=== PATIENT | female | born 1945 | race Caucasian/White ===

== ENCOUNTER 2022-09-04 21:05 | Emergency (ER) | payer MEDICARE, BC ==
--- NOTE | 2022-09-04 22:06 | XR ---
EXAMINATION TYPE: XR ankle complete LT DATE OF EXAM: 09/04/2022 COMPARISON: NONE HISTORY: Swelling and pain TECHNIQUE: 2 view FINDINGS: Ankle mortise is anatomic. I see no fracture nor dislocation. There is plantar and Achilles calcaneal spurring. There are no erosions. IMPRESSION: Calcaneal spurring. No fracture seen.
[2022-09-04 22:08] VITALS: RESP 16
--- NOTE | 2022-09-04 22:08 | XR ---
EXAMINATION TYPE: XR tibia fibula LT DATE OF EXAM: 09/04/2022 COMPARISON: NONE HISTORY: Pain and swelling TECHNIQUE: 2 views FINDINGS: Tibia and fibula appear intact. No fracture nor dislocation. Knee joint and ankle joint tabitha ear intact. IMPRESSION: Negative left tibia and fibula exam.
[2022-09-04] MEDS ORDERED: predniSONE 20 MG TAB PO STA (22:39)
[2022-09-04] MEDS ORDERED: ACETAMINOPHEN TAB 500 MG TAB PO STA (22:39)
--- NOTE | 2022-09-04 22:50 | ED ---
Extremity Problem HPI - General Chief complaint: Extremity Problem,Nontraumatic Stated complaint: L foot swelling Time Seen by Provider: 09/04/22 21:27 Source: patient, RN notes reviewed Mode of arrival: wheelchair Limitations: no limitations - History of Present Illness Initial comments: This is a pleasant 77-year-old female comes in complaining of left ankle pain and swelling. Patient states that she was just doing some work today and stood up and felt pain in her ankle. Mainly lateral aspect. Patient states that she is able put some weight on it but it increases the pain. No proximal pain. No distal. Seizures. No definitive injury. No headache, no fever or chills, no changes in vision or hearing, no sore throat or difficulty with speech, no neck pain, no chest pain or shortness of breath, no abdominal pain, no nausea or vomiting, no changes in urination or bowel movements, no numbness or tingling, , no skin rashes or lesions. No history of liver dysfunction or kidney dysfunction. No direct trauma. No history of diabetes or gout. Positive family history of gout and her son Past medical, surgical, social, and family history reviewed. - Related Data Previous Rx's Medication Instructions Recorded predniSONE [Deltasone] 40 mg PO DAILY #6 tab 09/04/22 Allergies Allergy/AdvReac Type Severity Reaction Status Date / Time No Known Allergies Allergy Verified 09/04/22 21:26 Review of Systems ROS Statement: Those systems with pertinent positive or pertinent negative responses have been documented in the HPI. ROS Other: All systems not noted in ROS Statement are negative. Past Medical History Past Medical History: Hypertension Past Surgical History: Tubal Ligation General Exam Limitations: no limitations General appearance: alert, in no apparent distress Head exam: Present: atraumatic, normocephalic, normal inspection Eye exam: Present: normal appearance, EOMI ENT exam: Present: normal exam Neck exam: Present: normal inspection, full ROM Respiratory exam: Present: normal lung sounds bilaterally. Absent: respiratory distress, wheezes, rales, rhonchi, stridor Cardiovascular Exam: Present: regular rate, normal rhythm, normal heart sounds. Absent: systolic murmur, diastolic murmur, rubs, gallop, clicks GI/Abdominal exam: Present: soft. Absent: tenderness Left Knee exam: Present: normal inspection, full ROM. Absent: tenderness, swelling, abrasion, laceration Lower Leg exam: Present: normal inspection. Absent: tenderness, swelling, abrasion, laceration, ecchymosis, deformity, crepitus, dislocation Ankle exam: Present: full ROM, tenderness (Patient has tenderness over both the anterior talofibular ligament and the calcaneal talofibular ligament. No medial tenderness), swelling. Absent: normal inspection, abrasion, laceration, ecchymosis, deformity, crepitus, dislocation, erythema, anterior draw sign Foot/Toe exam: Present: normal inspection, full ROM. Absent: tenderness, swelling, abrasion, laceration, ecchymosis, deformity, crepitus, dislocation, erythema Neurovascular tendon exam: Present: no vascular compromise. Absent: pulse deficit, abnormal cap refill, motor deficit, sensory deficit, pallor Gait: antalgic Back exam: Present: normal inspection Neurological exam: Present: alert, oriented X3, CN II-XII intact. Absent: motor sensory deficit Psychiatric exam: Present: normal affect, normal mood Skin exam: Present: warm, dry, intact, normal color. Absent: rash, cyanosis, di aphoretic, erythema Course Vital Signs 09/04/22 09/04/22 21:20 22:05 Temperature 98 F 97.9 F Pulse Rate 77 74 Respiratory 20 16 Rate Blood Pressure 155/88 144/87 O2 Sat by Pulse 96 97 Oximetry Medical Decision Making - Medical Decision Making Was pt. sent in by a medical professional or institution? @ -no Did you speak to anyone other than the patient for history? @ -Son Did you review nursing and triage notes? @ -Reviewed, agree Were old charts reviewed? @ -no Differential Diagnosis? @ -Gout, ankle sprain, DVT, infection, ankle fracture, this is not an exhaustive list EKG interpreted by me (3pts min.)? @ -[none] X-rays interpreted by me (1pt min.)? @ -Plain films of the left ankle and left tib-fib read by me show evidence of arthritic changes but no acute process. Reviewed radiology interpretation CT interpreted by me (1pt min.)? @ -[none] U/S interpreted by me (1pt. min.)? @ -[none] What testing was considered but not performed? (CT, X-rays, U/S, labs)? Why? @Testing for baseline gout was also considered and actually ordered after a long discussion with the patient and her son. What meds were considered but not given? Why? @ -Considered anti-inflammatory medication such as ibuprofen or indomethacin. After discussion decided to treat with corticosteroids and immobilization. Ankle splint, neurovascular status intact. Did you discuss the management of the patient with other professionals? @ -Pending physician Did you reconcile home meds? @ -[none] Was smoking cessation discussed for >3mins.? @ -[none] Was critical care preformed (if so, how long)? @ -[none] Were there social determinants of health that impacted care today? How? (Homelessness, low income, unemployed, alcoholism, drug addiction, transportation, low edu. Level, literacy, decrease access to med. care, long term, rehab)? @ -no Was there de-escalation of care discussed even if they declined? (Discuss DNR or withdrawal of care, Hospice)? @ -no What co-morbidities impacted this encounter? (DM, HTN, Smoking, COPD, CAD, Cancer, CVA, Hep., AIDS, mental health diagnosis, sleep apnea, morbid obesity)? @ -Family history of gout Was patient admitted / discharged? @ -[Patient was not ill or toxic. Patient's symptomatology most consistent with ankle sprain. I suspect the patient may have injured it and then after the edema came on started getting pain. Pain only to the lateral aspect of the ankle over the ligamentous structures. There was no erythema or evidence of infectious process. I think this is a very remote possibly of gout. However a fter long discussion with the patient and her son I did order a CBC, BMP, sedimentation rate, CRP, and uric acid level. These were pending when the patient left. Patient was treated conservatively arise with an ankle splint. Her status intact. Patient concurs with this treatment plan. We will call her doctor for follow-up appointment tomorrow without fail. Patient has a negative Homans sign, does not appear to be consistent with DVT, no tenderness or swelling proximal to the ankle Patient was given 4 days of prednisone 40 mg daily. Given the first dose here.] Undiagnosed new problem with uncertain prognosis? @ -[none] Drug Therapy requiring intensive monitoring for toxicity (Heparin, Nitro, Insulin, Cardizem)? @ -[none] Were any procedures done? @ -[none] Diagnosis/symptom? @ -Left ankle pain Acute, or Chronic, or Acute on Chronic? @ -Acute Uncomplicated (without systemic symptoms) or Complicated (systemic symptoms)? @ -Uncomplicated Side effects of treatment? @ -[none] Exacerbation, Progression, or Severe Exacerbation] @ -[no] Poses a threat to life or bodily function? @ -Unlikely The case was discussed in detail with ED attending physician. Presentation, findings, treatment plan discussed in detail. Patient was told to return to the ER for any signs or symptoms worsen. Told to return immediately if any other problems arise. All questions answered. Treatment plan discussed. Patient in agreement Every effort has been made to ensure accuracy of this dictation. However, due to the limitations of electronic medical records and dictation devices, errors in charting still occur. Resident Dr. Gutierrez Disposition Clinical Impression: Left ankle sprain, Left ankle pain Narrative: Left ankle pain, likely a sprain, remote possibility of gout. Disposition: HOME SELF-CARE Condition: Good Additional Instructions: Wear the Velcro ankle splint as directed. Call in the morning to set up a follow-up appointment with your doctor. You doctor can go over the laboratory work that was ordered. Elevate your ankle as much as possible. Take the prednisone as directed for the next 3 days. Apply ice 20 minutes on and off to the affected area. I believe this is likely a ligament sprain. However there is a remote possibility of gout. He laboratory investigations to include a CBC, BMP, sedimentation rate, C-reactive protein, and uric acid have been sent and are pending. Follow-up with your regular physician as directed. Return to the ER immediately if any symptoms worsen, new symptoms arise, or any other problems develop. Is patient prescribed a controlled substance at d/c from ED?: No Referrals: Santos Daly DO [Primary Care Provider] - 1-2 days Time of Disposition: 22:43
[2022-09-04 23:16] VITALS: BP 138/73; PULSE 78; TEMP 98.4
[2022-09-04 23:16] LABS: Basophils # (A) 0.1 k/uL (0-0.2); Basophils % (A) 0 %; Eosinophils # (A) 0.2 k/uL (0-0.7); Eosinophils % (A) 2 %; HCT 37.3 % (34.0-46.0); HGB 12.8 gm/dL (11.4-16.0); Lymphocytes # (A) 2.2 k/uL (1.0-4.8); Lymphocytes % (A) 18 %; MCHC 34.4 g/dL (31.0-37.0); MCV 84.3 fL (80.0-100.0); Mean Platelet Volume 8.7; Monocytes # (A) 0.8 k/uL (0-1.0); Monocytes % (A) 7 %; Neutrophils # (A) 8.9 k/uL (1.3-7.7); Neutrophils % (A) 73 %; Platelet Count 203 k/uL (150-450); RBC 4.42 m/uL (3.80-5.40); RDW 13.2 % (11.5-15.5); WBC 12.2 k/uL (3.8-10.6)
[2022-09-04 23:27] LABS: African American GFR (CKD) >90 (>60 ml/min/1.73 sqM); Anion Gap 8 mmol/L; Blood Urea Nitrogen 24 mg/dL (7-17); C Reactive Protein 1.4 mg/dL (<1.0); Calcium 9.2 mg/dL (8.4-10.2); Carbon Dioxide 26 mmol/L (22-30); Chloride 104 mmol/L (98-107); Glucose 133 mg/dL (74-99); Non-African American GFR(CKD) 83 (>60 ml/min/1.73 sqM); Potassium 3.2 mmol/L (3.5-5.1); Sodium 138 mmol/L (137-145); Uric Acid 5.3 mg/dL (3.7-7.4)
[2022-09-05 01:03] LABS: Erythrocyte Sedimentation Rate 26 mm/hr (0-20)
== END 2022-09-04 23:15 | disposition home or self-care (01) ==
LOC: EC 21:05
DX: S93.402A Sprain of unspecified ligament of left ankle, initial encounter (principal); I10 Essential (primary) hypertension; X58.XXXA Exposure to other specified factors, initial encounter
CPT/HCPCS: 99284 ×2; 36415; 80048; 85652; 84550; 85025; 86140; 73590; 73610; 29125; L4350; J7512

== ENCOUNTER 2023-06-19 09:25 | Emergency (ER) | payer MEDICARE, BC ==
[2023-06-19 09:30] VITALS: BP 195/87; PULSE 87; RESP 20; TEMP 98
--- NOTE | 2023-06-19 10:08 | ED ---
General Adult HPI - General Chief complaint: Extremity Problem,Nontraumatic Stated complaint: Lt leg pain Time Seen by Provider: 06/19/23 09:37 Source: patient Mode of arrival: ambulatory Limitations: no limitations - History of Present Illness Initial comments: Dictation was produced using [employer] dictation software. please excuse any grammatical, word or spelling errors. Chief Complaint: 78-year-old female presents with chronic sciatica History of Present Illness: And is a 78-year-old female presents emergency department for chronic sciatica. Patient has been having worsening symptoms. She has been following with her primary care doctor regarding this. 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 Since that her pain is worse when going down the stairs is better whenever she bends at the waist slightly 4. Denies any fever chills or night sweats. No bowel or bladder issues. She states that she does have radiating symptoms from her left gluteus down to her foot laterally. Skin to the ER, she thought she might need an urgent MRI. The ROS documented in this emergency department record has been reviewed and confirmed by me. Those systems with pertinent positive or negative responses have been documented in the HPI. All other systems are other negative and/or noncontributory. - Related Data Previous Rx's Medication Instructions Recorded predniSONE [Deltasone] 40 mg PO DAILY #6 tab 09/04/22 HYDROcodone/APAP 5-325MG [Amana 1 tab PO Q6HR PRN 3 Days #12 tab 06/19/23 5-325] Allergies Allergy/AdvReac Type Severity Reaction Status Date / Time No Known Allergies Allergy Verified 06/19/23 09:30 Review of Systems ROS Statement: Those systems with pertinent positive or pertinent negative responses have been documented in the HPI. ROS Other: All systems not noted in ROS Statement are negative. Past Medical History Past Medical History: Hypertension History of Any Multi-Drug Resistant Organisms: None Reported Past Surgical History: Tubal Ligation Past Psychological History: No Psychological Hx Reported Smoking Status: Never smoker Past Alcohol Use History: None Reported Past Drug Use History: None Reported General Exam - General Exam Comments Initial Comments: PHYSICAL EXAM: General Impression: Alert and oriented x3, not in acute distress HEENT: Normocephalic atraumatic, extra-ocular movements intact, pupils equal and reactive to light bilaterally, mucous membranes moist. Cardiovascular: Heart regular rate and rhythm Chest: Able to complete full sentences, no retractions, no tachypnea Abdomen: abdomen soft, non-tender, non-distended, no organomegaly Musculoskeletal: Pulses present and equal in all extremities, no peripheral edema Motor: no focal deficits noted Neurological: CN II-XII grossly intact, no focal motor or sensory deficits noted Skin: Intact with no visualized rashes Psych: Normal affect and mood Limitations: no limitations Course Vital Signs 06/19/23 09:27 Temperature 98 F Pulse Rate 87 Respiratory 20 Rate Blood Pressure 195/87 O2 Sat by Pulse 96 Oximetry Medical Decision Making - Medical Decision Making Was pt. sent in by a medical professional or institution (, PA, MID LEVEL GAME DESIGNER, urgent care, hospital, or snf...) When possible be specific @ -No Did you speak to anyone other than the patient for history (EMS, parent, family, police, friend...)? What history was obtained from this source @ -No Did you review nursing and triage notes (agree or disagree)? Why? @ -I reviewed and agree with nursing and triage notes Were old charts reviewed (outside hosp., previous admission, EMS record, old EKG, old radiological studies, urgent care reports/EKG's, snf records)? Report findings @ -No old charts were reviewed Differential Diagnosis (chest pain, altered mental status, abdominal pain women, abdominal pain men, vaginal bleeding, musculoskeletal, weakness, fever, dyspnea, syncope, headache, dizziness, GI bleed, back pain, seizure, CVA, palpatations, mental health)? @ -Differential Back Pain: Strain, zoster, cauda equina syndrome, epidural abscess, vertebral osteomyelitis, discitis, fracture, subluxation, disc herniation, DJD, spinal stenosis, dissection, AAA, pancreatitis, peptic ulcer disease, pyelonephritis, kidney stone, this is not meant to be an all-inclusive list. EKG interpreted by me (3pts min.). @ -None done X-rays interpreted by me (1pt min.). @ -None done CT interpreted by me (1pt min.). @ -None done U/S interpreted by me (1pt. min.). @ -None done What testing was considered but not performed or refused? (CT, X-rays, U/S, labs)? Why? @ -None What meds were considered but not given or refused? Why? @ -None Did you discuss the management of the patient with other professionals (professionals i.e. , PA, MID LEVEL GAME DESIGNER, lab, RT, psych nurse, criminal justice social worker, food and beverage order clerk, teacher, systems support officer, transplant case manager)? Give summary @ -No Was smoking cessation discussed for >3mins.? @ -No Was critical care preformed (if so, how long)? @ -No Were there social determinants of health that impacted care today? How? (Homelessness, low income, unemployed, alcoholism, drug addiction, transportation, low edu. Level, literacy, decrease access to med. care, skilled nursing, rehab)? @ -No Was there de-escalation of care discussed even if they declined (Discuss DNR or withdrawal of care, Hospice)? DNR status @ -No What co-morbidities impacted this encounter? (DM, HTN, Smoking, COPD, CAD, Cancer, CVA, ARF, Chemo, Hep., AIDS, mental health diagnosis, sleep apnea, morbid obesity)? @ -None Was patient admitted / discharged? Hospital course, mention meds given and route, prescriptions, significant lab abnormalities, going to OR and other pertinent info. @ -78-year-old female presents to the emergency department for chronic back pain. Vital signs stable. Patient denies any acute symptoms. No high-risk features. Patient not sure she should come to the ER for an MRI. She is told that she does not need an urgent MRI and that she should follow-up with her primary care doctor for outpatient MRI. Given referral to the to local spine surgeons in town. Will plan. All questions answered. Undiagnosed new problem with uncertain prognosis? @ -No Drug Therapy requiring intensive monitoring for toxicity (Heparin, Nitro, Insulin, Cardizem)? @ -No Were any procedures done? @ -No Diagnosis/symptom? Acute, or Chronic, or Acute on Chronic? Uncomplicated (without systemic symptoms) or Complicated (systemic symptoms)? @ -Back pain Side effects of treatment? @ -No Exacerbation, Progression, or Severe Exacerbation? @ -No Poses a threat to life or bodily function? How? (Chest pain, [place], [place], pneumonia, PE, COPD, DKA, ARF, appy, cholecystitis, CVA, Diverticulitis, Homicidal, Suicidal, threat to staff... and all critical care pts) @ -No Disposition Clinical Impression: Back pain Disposition: HOME SELF-CARE Condition: Good Instructions (If sedation given, give patient instructions): Sciatica (ED) Prescriptions: HYDROcodone/APAP 5-325MG [Amana 5-325] 1 tab PO Q6HR PRN 3 Days #12 tab PRN Reason: Severe Pain Is patient prescribed a controlled substance at d/c from ED?: Yes If prescribed controlled substance>3 days was MAPS reviewed?: Prescribed <3 Days Referrals: Julio Eisenberg DO [Doctor of Osteopathic Medicine] - 1-2 days Matthew Patel DO [Doctor of Osteopathic Medicine] - 1-2 days Time of Disposition: 10:06
== END 2023-06-19 10:24 | disposition home or self-care (01) ==
LOC: EC 09:25
DX: M54.9 Dorsalgia, unspecified (principal); I10 Essential (primary) hypertension
CPT/HCPCS: 99283

== ENCOUNTER → 2023-06-26 | Outpatient (CLI) | payer MEDICARE, BC ==
--- NOTE | 2023-06-26 10:57 | MR ---
EXAMINATION TYPE: MR lumbar spine wo con DATE OF EXAM: 06/26/2023 COMPARISON: NONE HISTORY: Back pain TECHNIQUE: T1 and T2 axial and sagittal images of the lumbar spine are submitted. FINDINGS: There is no abnormal signal seen within the visualized spinal cord or paraspinal soft tissu es. At L1-2 there is mild disc desiccation. No disc herniation or canal stenosis. No foraminal At L2-3 there is mild degenerative disc disease. Mild hypertrophic change facets. No disc herniation or stenosis. No foraminal encroachment. At L3-4 there is mild degenerative disc disease with ligamentum flavum hypertrophy and facet arthropa thy. No canal stenosis or disc herniation. Neural foramina are patent. Grade 1 anterior listhesis L3- 4. At L4-5 there is advanced facet arthropathy with grade 1 anterior listhesis. There is a area of low s ignal along the left facet perching upon the lateral margin thecal sac. Could represent small synovia l cyst. There is disc bulging and ligamentum flavum hypertrophy moderate right and moderate to severe left foraminal protrusion. Far left lateral disc protrusion in the differential diagnosis. Mild tiffanie l stenosis. At L5-S1 there is facet arthropathy. Mild bilateral foraminal encroachment. No canal stenosis or foca l herniation. IMPRESSION: 1. Moderate canal stenosis L4-L5 with grade 1 anterolisthesis. There is left lateral compression of t he thecal sac secondary to suspected small synovial cyst. Severe left-sided foraminal enlargement wit h left lateral disc protrusion suspected. 2. Grade 1 anterolisthesis L3-L4. Degenerative secondary to advanced facet arthropathy.
== END | disposition home or self-care (01) ==
LOC: RADMRIMAIN 10:01
PROVIDERS: ATTEND Family Medicine
DX: M43.16 Spondylolisthesis, lumbar region (principal); M51.16 Intervertebral disc disorders with radiculopathy, lumbar region; M48.061 Spinal stenosis, lumbar region without neurogenic claudication
CPT/HCPCS: 72148

== ENCOUNTER → 2023-09-14 | Outpatient (CLI) | payer MEDICARE, BC ==
[2023-09-14 17:07] LABS: INR 0.9 (<1.2); Partial Thromboplastin Time 24.9 sec (22.0-30.0); Prothrombin Time 10.1 sec (10.0-12.5)
[2023-09-15 02:23] LABS: HCT 42.4 % (37.2-46.3); HGB 13.7 g/dL (12.0-15.0); MCH 28.8 pg (27.0-32.0); MCHC 32.3 g/dL (32.0-37.0); MCV 89.1 FL (80.0-97.0); NRBC Per 100 WBC 0.02 X 10*3/uL (0.00-0.01); Platelet Count 286 X 10*3/uL (140-440); RBC 4.76 X 10*6/uL (4.10-5.20); RDW 13.8 % (11.5-14.5); WBC 10.79 X 10*3/uL (4.50-10.00)
[2023-09-15 03:42] LABS: ALT 11 U/L (8-44); AST 18 U/L (13-35); Albumin 4.6 g/dL (3.8-4.9); Albumin/Globulin Ratio 1.77 Ratio (1.60-3.17); Alkaline Phosphatase 144 U/L (41-126); BUN/Creat Ratio 14.88 Ratio (12.00-20.00); Blood Urea Nitrogen 11.9 mg/dL (9.0-27.0); Calcium 10.5 mg/dL (8.7-10.3); Carbon Dioxide 23.6 mmol/L (21.6-31.8); Chloride 103 mmol/L (96-109); Globulin 2.6 g/dL (1.6-3.3); Glucose 105 mg/dL (70-110); Potassium 3.7 mmol/L (3.5-5.5); Sodium 144 mmol/L (135-145); Total Bilirubin 0.5 mg/dL (0.3-1.2); Total Protein 7.2 g/dL (6.2-8.2)
== END | disposition home or self-care (01) ==
LOC: LABPAT 15:49
PROVIDERS: ATTEND Orthopaedic Surgery
DX: Z01.812 Encounter for preprocedural laboratory examination (principal); M16.11 Unilateral primary osteoarthritis, right hip; Z22.322 Carrier or suspected carrier of Methicillin resistant Staphylococcus aureus
CPT/HCPCS: 80053; 85027; 85610; 85730; 86850; 86900; 86901; 87070

== ENCOUNTER 2023-09-22 05:35 | Day surgery (SDC) | payer MEDICARE, BC ==
[~2023-09-22 05:35] MED LIST: ACETAMINOPHEN TAB 500 MG TAB PO PRN; GABAPENTIN 300 MG CAP PO PRN; MELOXICAM 7.5 MG TAB PO PRN; TRANEXAMIC 1,000 MG/100ML-NACL 1,000 MG in SALINE 1 100ML.BAG IVPB PRN
[2023-09-22] MEDS: LACTATED RINGERS 1,000 ML IV SCH (06:21)
[2023-09-22] MEDS ORDERED: LIDOCAINE 1% (10MG/ML) FOR IV START INTRADERMA ONE (06:21)
[2023-09-22] MEDS: ONDANSETRON 4 MG/2 ML VIAL IVP ONE ×2 (06:35→06:40)
[2023-09-22] MEDS ORDERED: MIDAZOLAM 2 MG/2 ML VIAL IVP ONE (06:35)
[2023-09-22] MEDS: DEXAMETHASONE SOD PHOSPHATE 4 MG/ML 1 ML VIAL IV ONE ×2 (06:35→06:40)
[2023-09-22] MEDS ORDERED: ROPIVACAINE 5 MG/ML 30 ML VIAL ONE (06:56)
[2023-09-22] MEDS ORDERED: PROPOFOL 10 MG/ML 20 ML VIAL IV ONE (06:56)
[2023-09-22] MEDS ORDERED: TRANEXAMIC 1,000 MG/100ML-NACL PREMIX BAG ONE (06:56)
[2023-09-22] MEDS ORDERED: KETAMINE HCL IN 0.9 % NACL 50 MG/5 ML SYRINGE ONE (06:56)
[2023-09-22] MEDS ORDERED: ePHEDrine 50 MG/ML 1 ML VIAL ONE (06:56)
[2023-09-22] MEDS ORDERED: DEXAMETHASONE SOD PHOSPHATE 4 MG/ML 1 ML VIAL ONE (06:56)
[2023-09-22] MEDS ORDERED: fentaNYL (PF) 50 MCG/ML 2 ML AMP ONE (06:56)
[2023-09-22] MEDS ORDERED: HYDROmorphone 0.5 MG/0.5 ML SYRINGE IVP PRN ×4 (07:00→08:32)
[2023-09-22] MEDS ORDERED: ceFAZolin 1,000 MG in SODIUM CHLORIDE 0.9% 1,000 ML IRRIGATION ONE (07:01)
[2023-09-22] MEDS ORDERED: ROPIVACAINE 5 MG/ML 30 ML VIAL MISCELLANE ONE ×2 (07:04→08:02)
--- NOTE | 2023-09-22 07:51 | P.ANPRN ---
Procedure Note - Anesthesia - Nerve Block Performed Right N[place]um Single Time Out Performed: Yes ([id number]) Date of Procedure: 09/22/23 Procedure Start Time: 06:35 Procedure Stop Time: 06:41 Location of Patient: PreOp Indication: Acute Post-Operative Pain, Requested by Surgeon Sedation Type: Sedate with meaningful contact maintained Preparation: Sterile Prep, Sterile Dressing Position: Supine Catheter: None Needle Types: Pajunk Needle Gauge: 21 Ultrasound used to visualize needle placement: Yes Ultrasound used to observe medication spread: Yes Injectate: 0.5% Ropivacaine (see comment for volume) (20 ml) Blood Aspirated: No Pain Paresthesia on Injection Noted: No Resistance on Injection: Normal Image Stored and Saved: Yes Events: Uneventful and Well Tolerated
--- NOTE | 2023-09-22 08:09 | P.OP ---
Date of Procedure: 09/22/23 Preoperative Diagnosis: Severe osteoarthritis right hip Postoperative Diagnosis: Severe osteoarthritis right hip Procedure(s) Performed: Right total hip arthroplasty with a direct anterior approach Implants: [employer] Polarstem standard size 4 with a collar [employer] R3, multi-hole hemispherical acetabular shell, 50 mm [employer] Reflection 6.5 mm cancellus screw, 20 mm 2 [employer] R3, XLPE 20 acetabular liner [employer] Oxinium femoral head 36 mm, +0 All components were press-fit. The articulation is Oxinium on polyethylene. Anesthesia: GETA, spinal Surgeon: Santos Villarreal Statement Clerk #1: Noy Sauceda Estimated Blood Loss (ml): 200 Pathology: none sent Condition: stable Disposition: PACU Indications for Procedure: After failure of conservative treatment we discussed the surgical and nonsurgical treatment options at length. Patient wishes to proceed with a total hip arthroplasty with a direct anterior approach. Complications specific to this procedure were discussed at length, including but not limited to infection, leg length discrepancy, dislocation, nerve injury, and fracture. Covid-19 was also discussed at length with the patient, and they are aware of the current policies and procedures. The patient was given the option of delaying surgery, but they elect to proceed knowing these risks. Patient is aware of all these complications and informed consent was obtained Operative Findings: The operative findings are consistent with severe osteoarthritis of the right hip Description of Procedure: The patient was seen and evaluated in the preoperative area and the consent was reviewed. The operative site was marked with a skin marker. The patient verified the procedure and operative site. A OSIRIS block was placed by anesthesia in the preoperative area. The patient was then brought to the operating room and given preoperative antibiotics intravenously. 1 g of Tranexamic acid was also given intravenously. A spinal anesthetic was administered by the anesthesia department. The patient was then placed on the Bolton table with the bony prominences well-padded. The hip area was then prepped with a ChloraPrep solution and draped in the usual sterile fashion. A universal timeout was then performed, which confirmed the patient's name, surgical site, ALLERGIES, and procedure being performed on the consent. Next the incision site was located at 1 cm distal and 4 cm lateral to the anterior superior iliac spine. The skin and subcutaneous tissues were sharply incised. At this time the patient was experiencing sensation of pain at the operative site. The surgery was then halted and a general anesthetic was then performed. After the general anesthetic had been administered, surgical procedure resumed. Incision was carefully dissected down to the fascia overlying the tensor fascia david muscle. This fascia was then incised in line with the muscle fibers. Care was taken to stay laterally in order to avoid injuring the lateral femoral cutaneous nerve. Next, using blunt finger dissection, the tensor fascia david muscle was dissected off its investing fascia. The muscle was then carefully retracted laterally with a cobra retractor over the lateral neck of the femur. Next, the circumflex vessels were identified and cauterized using the Aquamantis device. The anterior hip capsule was then exposed. The capsule was then opened and an inverted T fashion. The retractors were then placed intracapsularly. The retractors were maintained intracapsular throughout the procedure. The proximal femur was then visualized. Fluoroscopic x-rays were then taken in order to evaluate the preoperative leg lengths. A small amount of traction was placed on the leg. The femoral neck was then osteotomized at the appropriate level above the lesser trochanter. A small wedge of bone was then removed from the remaining femoral head. Next, using a corkscrew the femoral head was removed from the acetabulum. On gross visual inspection, the femoral head had complete loss of articular cartilage and multiple periarticular osteophytes. The femoral head was then measured. Attention was then turned to the acetabulum. The acetabulum was exposed and any remaining labrum was excised. Sequential reaming of the acetabulum was performed using fluoroscopic guidance until there was a good bed of bleeding cancellus bone. When the appropriate size was reached, a trial was then placed. The position and fit of the trial was checked with fluoroscopy. The trial was then removed. Then, using fluoroscopic guidance, the final implant was impacted at 20 of anteversion and 40 of abduction, and fully seated in the acetabulum. 2 screws were then placed in the acetabulum. Again fluoroscopy was used to check position of the screws. Next, the liner was then impacted, with a 20 elevated liner located in the anterior superior quadrant. Component locking was confirmed. Attention was then directed to the femur. With the aid of the Bolton table, the femur was externally rotated to approximately 130, extended, and adducted under the opposite leg. A side hook was then placed under the proximal femur, and the side hook elevator was used to elevate the proximal femur while releasing the capsule. Retractors were then placed. A capsular release was performed, as well as a release of the conjoined tendon, which afforded excellent visualization of the proximal femur. Next, a box osteotome was used to lateralize the proximal femur. A orchard hand was then used to locate the femora l canal. Sequential broaching was then performed with appropriate size which afforded excellent fixation in the proximal femur. A trial was then placed with appropriate head and neck, and the hip was gently reduced with the aid of the Bolton table. Fluoroscopy was then used to check position of the components, as well as to evaluate the leg lengths and offset. The leg lengths and offset were measured as closely as possible to ensure stability of the hip. The hip was then gently dislocated and the trials were then removed. Final implants were then impacted and the hip was again reduced. Final fluoroscopic x-rays confirmed that the components were in anatomic position. The leg lengths and offset were measured and were found to coincide with the trial measurements. The hip was also taken through range of motion, and found to be stable. The hip was then copiously irrigated with antibiotic solution with pulsatile lavage. The hip was then irrigated with Irrisept solution. The soft tissues were then injected with a ropivacaine solution. A second dose of 1 g of Tranexamic acid was also given intravenously. The fascia was then closed with 2-0 strata fix suture. The subcutaneous tissue was closed with 3-0 Vicryl. The subcuticular tissue was closed with 3-0 strata fix suture. The skin was then closed with Exofin skin glue. After the glue and dried, and Optifoam silver impregnated dressing was applied. The patient was then transferred to the recovery room in stable condition. The assistant maintenance manager JENSEN Correa was required due to the complexity of surgery, and the need for skilled certified surgical assistant for positioning, draping, exposure, retraction, and closure of the wound.
[2023-09-22] MEDS ORDERED: LACTATED RINGERS 1,000 ML IV ONE (08:25)
[2023-09-22] MEDS ORDERED: MAGNESIUM HYDROXIDE 2,400 MG/30 ML CUP PO PRN (08:32)
[2023-09-22] MEDS ORDERED: NALOXONE 0.4 MG/ML 1 ML VIAL IV PRN (08:32)
[2023-09-22] MEDS ORDERED: ONDANSETRON 4 MG/2 ML VIAL IVP PRN (08:32)
[2023-09-22] MEDS ORDERED: HYDROcodone/APAP 5-325MG 1 EACH TAB PO PRN (08:34)
--- NOTE | 2023-09-22 09:10 | FL ---
EXAMINATION TYPE: FL guidance operating room, XR Hip Complete RT Intraoperative/procedural fluoroscop ic services were provided. Total fluoroscopy time is 24.8 seconds with a total of 3 submitted images to PACS. Please see the operative/procedural note for further details. DAP: 2.2038 mGym2 Gycm2
--- NOTE | 2023-09-22 09:20 | XR ---
EXAMINATION TYPE: XR Hip Limited RT DATE OF EXAM: 09/22/2023 9:13 AM CLINICAL INDICATION:Female, 78 years old with history of Status post hip surgery, assess surgical ali gnment; COMPARISON: None TECHNIQUE: XR Hip Limited RT; hip was examined in the frontal and lateral projections FINDINGS: Post arthroplasty changes, hardware is intact, alignment is appropriate. No evidence of fra cture. Postoperative changes of the soft tissues with subcutaneous gas. No evidence of any acute osse ous pathology or joint dislocation. IMPRESSION: Hip arthroplasty with hardware intact and in appropriate alignment. No acute fracture.
[2023-09-22] MEDS: HYDROcodone/APAP 5-325MG 1 EACH TAB PO PRN ×2 (16:06→22:00)
[2023-09-22] MEDS: SODIUM CHLORIDE 0.9% 1,000 ML IV SCH ×2 (16:07→23:40)
--- NOTE | 2023-09-22 17:41 | P.CONS ---
History of Present Illness - Reason for Consult Consult date: 09/22/23 - History of Present Illness Patient is a 78-year-old female with history of hypertension and dyslipidemia presenting for elective right hip arthroplasty. [facility] physicians has been consulted for medical management. Vital signs within normal limits, the pressure 148/78. No new labs available. Patient currently denies any chest pain or shortness of breath, abdominal pain, nausea, vomiting, urinary or bowel complaints. Pertinent positives and negatives as discussed in HPI, a complete review of systems was performed and all other systems are negative. Patient seen and examined at bedside. Vital signs reviewed General: nontoxic, no distress, appears at stated age Derm: warm, dry, dressing clean, dry, intact Head: atraumatic, normocephalic, symmetric Eyes: EOMI, no lid lag, anicteric sclera, pupils equal round reactive to light ENT: Nose and ears atraumatic Neck: No thyromegaly, supple Mouth: no lip lesion, mucus membranes moist Cardiovascular: S1S2 reg, no murmur, no edema Lungs: clear to auscultation bilateral, no rhonchi, no rales, no wheeze, no accessory muscle use Abdominal: soft, nontender to palpation, no guarding, no appreciable organomegaly Ext: no gross muscle atrophy, muscle strength muscle strength 5 out of 5 in all 4 extremities, no contractures Neuro: CN II-XII grossly intact Psych: Alert, oriented, appropriate affect Assessment/Plan: Status post right hip arthroplasty -Pain control with oral norco as needed, IV Dilaudid as needed, monitor for respiratory depression -Senna scheduled -Aspirin 325 twice a day as DVT prophylaxis -CBC and BMP pending for tomorrow Hypertension Dyslipidemia -Restarted home metoprolol 100 mg daily, niacin 500 mg daily, fish oil 2 g daily Thank you for allowing us to participate in the care of this pleasant patient. Do not hesitate to contact us with questions. Someone can be reached from the [facility] hospitalist group all hours of the day at [phone] or via [employer]. Past Medical History Past Medical History: Eye Disorder, Hypertension, Musculoskeletal Disorder, Osteoarthritis (OA) Additional Past Medical History / Comment(s): Fuch's dystrophy eyes, lumbar disc problem that causes left leg pain @times History of Any Multi-Drug Resistant Organisms: None Reported Past Surgical History: Tubal Ligation Additional Past Surgical History / Comment(s): cindy cataracts removed Past Anesthesia/Blood Transfusion Reactions: No Reported Reaction Additional Past Anesthesia/Blood Transfusion Reaction / Comm: no hx. of blood transfusion reaction Past Psychological History: No Psychological Hx Reported Smoking Status: Never smoker Past Alcohol Use History: None Reported Past Drug Use History: None Reported - Past Family History Mother Family Medical History: No Reported History Medications and Allergies Home Medications Medication Instructions Recorded Confirmed Type Metoprolol Succinate (ER) [Toprol 100 mg PO DAILY 09/16/23 09/16/23 History Xl] Ascorbic Acid [Vitamin C] 500 mg PO DAILY 09/17/23 09/17/23 History Calcium Carbonate [Calcium] 600 mg PO DAILY 09/17/23 09/17/23 History Cholecalciferol [Vitamin D3 (25 50 mcg PO DAILY 09/17/23 09/17/23 History Mcg = 1000 Iu)] Niacin 500 mg PO DAILY 09/17/23 09/17/23 History [place]-3/Dha/Epa/Fish Oil [Fish Oil 2 each PO DAILY 09/17/23 09/17/23 History 1,000 mg Softgel] Potassium Citrate 99 mg PO DAILY 09/17/23 09/17/23 History Sodium Chloride 5% Ophth Soln 1 drops BOTH EYES BID 09/17/23 09/17/23 History [Trish 128] Aspirin 325 mg PO BID #60 tab 09/22/23 Rx HYDROcodone/APAP 5-325MG [[place] 1 - 2 tab PO Q6HR PRN #32 tab 09/22/23 Rx 5-325] Sennosides [Senokot] 2 tab PO DAILY PRN #60 tablet 09/22/23 Rx Sodium Chloride 5% Ophth Soln 1 drops BOTH EYES BID 09/22/23 09/22/23 History [Trish 128] Allergies Allergy/AdvReac Type Severity Reaction Status Date / Time No Known Allergies Allergy Verified 09/22/23 06:04 Physical Exam Vitals: Vital Signs Temp Pulse Pulse Resp BP BP BP 09/22/23 13:39 98.6 F 78 18 148/78 09/22/23 13:18 18 09/22/23 12:15 67 16 112/58 09/22/23 11:15 61 16 139/55 09/22/23 10:45 64 16 134/52 09/22/23 10:15 61 16 145/58 09/22/23 10:00 59 L 16 143/59 09/22/23 09:45 64 16 151/60 09/22/23 09:30 56 L 16 147/69 09/22/23 09:12 58 L 16 149/54 09/22/23 08:57 57 L 16 135/56 09/22/23 08:42 52 L 16 114/47 09/22/23 08:27 97.4 F L 58 L 18 142/51 09/22/23 06:45 74 16 151/67 09/22/23 06:10 97.9 F 92 16 170/77 Pulse Ox 09/22/23 13:39 96 09/22/23 13:18 09/22/23 12:15 95 09/22/23 11:15 97 09/22/23 10:45 98 09/22/23 10:15 93 L 09/22/23 10:00 97 09/22/23 09:45 98 09/22/23 09:30 98 09/22/23 09:12 99 09/22/23 08:57 100 09/22/23 08:42 100 09/22/23 08:27 99 09/22/23 06:45 99 09/22/23 06:10 98 Intake and Output 09/22/23 09/22/23 09/22/23 06:59 14:59 22:59 Intake Total 200 1051 Output Total 200 Balance 200 851 Intake: IV 200 1051 Output: Estimated Blood Loss 200 Other: Weight 70.3 kg 70.3 kg
[2023-09-22] MEDS ORDERED: SODIUM CHLORIDE 5% OPHTH DROPS 15 ML BTL BOTH EYES SCH (21:00)
[2023-09-22] MEDS: SENNOSIDES-DOCUSATE SODIUM 1 EACH TAB PO SCH (21:59)
[2023-09-22] MEDS: ASPIRIN 325 MG TAB PO SCH (22:00)
[2023-09-22] MEDS: SODIUM CHLORIDE 5% OPHTH DROPS 15 ML BTL BOTH EYES SCH (22:00)
[2023-09-23 05:49] LABS: African American GFR (CKD) 84 (>60 ml/min/1.73 sqM); Anion Gap 1 mmol/L; Blood Urea Nitrogen 14 mg/dL (7-17); Calcium 8.9 mg/dL (8.4-10.2); Carbon Dioxide 27 mmol/L (22-30); Chloride 110 mmol/L (98-107); Glucose 118 mg/dL (74-99); Non-African American GFR(CKD) 73 (>60 ml/min/1.73 sqM); Sodium 138 mmol/L (137-145)
[2023-09-23] MEDS: LACTATED RINGERS 1,000 ML IV SCH (06:30)
[2023-09-23 08:53] LABS: Basophils # (A) 0.01 X 10*3/uL (0.00-0.10); Basophils % (A) 0.1 %; Eosinophils # (A) 0 X 10*3/uL (0.04-0.35); Eosinophils % (A) 0 %; HCT 28.3 % (37.2-46.3); HGB 9.1 g/dL (12.0-15.0); Lymphocytes # (A) 1.34 X 10*3/uL (0.90-5.00); MCH 28.9 pg (27.0-32.0); MCHC 32.2 g/dL (32.0-37.0); MCV 89.8 FL (80.0-97.0); Mean Platelet Volume 11.1 FL (9.5-12.2); Monocytes # (A) 1.32 X 10*3/uL (0.20-1.00); Monocytes % (A) 11.8 %; NRBC Per 100 WBC 0 X 10*3/uL (0.00-0.01); Neutrophils # (A) 8.48 X 10*3/uL (1.80-7.70); Neutrophils % (A) 75.6 %; Platelet Count 201 X 10*3/uL (140-440); RBC 3.15 X 10*6/uL (4.10-5.20); RDW 13.9 % (11.5-14.5); WBC 11.21 X 10*3/uL (4.50-10.00)
[2023-09-23] MEDS ORDERED: NON FORMULARY DRUG (Omega-3/Dha/Epa/Fish Oil [Fish Oil 1,000 Mg Softgel] 1 EACH Capsule) PO SCH (09:00)
[2023-09-23] MEDS: SODIUM CHLORIDE 0.9% 1,000 ML IV SCH (09:30)
[2023-09-23] MEDS: METOPROLOL SUCCINATE (ER) 100 MG TAB.ER.24H PO SCH (09:31)
[2023-09-23] MEDS ORDERED: SODIUM CHLORIDE 0.9% 1,000 ML IV ONE (09:32)
[2023-09-23] MEDS: SODIUM CHLORIDE 5% OPHTH DROPS 15 ML BTL BOTH EYES SCH ×2 (09:35→21:35)
[2023-09-23] MEDS: ASPIRIN 325 MG TAB PO SCH ×2 (09:56→21:35)
[2023-09-23] MEDS: NIACIN TR 500 MG CAPLET PO SCH (09:56)
--- NOTE | 2023-09-23 10:33 | P.PN ---
Subjective Progress Note Date: 09/23/23 This is a 78-year-old female who is status post right total hip arthroplasty. This is postoperative day #1 and patient is seen and evaluated at bedside with Dr. Santos Villarreal. Patient states that she had a near syncopal episode when she stood up to work with physical therapy today. Patient states that she is feeling better after sitting down. Patient states that her pain is well co ntrolled. Patient denies any fever/chills, numbness, weakness, tingling, abdominal pain, shortness of breath or chest pain. Objective - Vital Signs Vital signs: Vital Signs Temp 98.5 F 09/23/23 07:10 Pulse 68 09/23/23 07:10 Resp 18 09/23/23 07:10 BP 131/64 09/23/23 09:27 Pulse Ox 97 09/23/23 07:10 FiO2 Intake & Output 09/22/23 09/23/23 09/23/23 18:59 06:59 18:59 Intake Total 1451 Output Total 200 Balance 1251 Weight 70.3 kg Intake: IV 1051 Intake, IV Titration 400 Amount Sodium Chloride 0.9% 1, 350 000 ml @ 70 mls/hr IV . [id number] JUJU Rx#:[id number] ceFAZolin 2 gm In Sodium 50 Chloride 0.9% 50 ml @ 100 mls/hr IVPB Q8H JUJU Rx#: [id number] Output: Estimated Blood Loss 200 Other: # Voids 1 3 - Exam Vital signs are stable. Patient is in no acute distress and is alert and oriented 3. Calf is soft and nontender to palpation. Dressing is clean, dry, and intact. Patient has full foot and ankle motion without pain or difficulty. Sensation intact. Neurovascular status and circulatory status are intact. - Labs CBC & Chem 7: 09/23/23 05:05 09/23/23 05:05 Labs: Abnormal Lab Results - Last 24 Hours (Table) 09/23/23 09/23/23 Range/Units 05:05 05:05 WBC 11.21 H (4.50-10.00) X 10*3/uL RBC 3.15 L (4.10-5.20) X 10*6/uL Hgb 9.1 L (12.0-15.0) g/dL Hct 28.3 L (37.2-46.3) % Immature Gran # 0.06 H (0.00-0.04) X 10*3/uL Neutrophils # 8.48 H (1.80-7.70) X 10*3/uL Monocytes # 1.32 H (0.20-1.00) X 10*3/uL Eosinophils # 0 L (0.04-0.35) X 10*3/uL Chloride 110 H (98-107) mmol/L Glucose 118 H (74-99) mg/dL Assessment and Plan (1) Osteoarthritis of right hip Current Visit: Yes Status: Acute Code(s): M16.11 - UNILATERAL PRIMARY OSTEOARTHRITIS, RIGHT HIP SNOMED Code(s): 514034874999879 (2) S/P total hip arthroplasty Current Visit: Yes Status: Acute Code(s): Z96.649 - PRESENCE OF UNSPECIFIED ARTIFICIAL HIP JOINT SNOMED Code(s): 395416190966 Plan: Continue routine postop care and pain control. Continue anticoagulation with aspirin. Weightbearing as tolerated with a walker. Leave dressing in place for 7 days. Appreciate input from internal medicine. Anticipate discharge home with homecare later today or tomorrow.
[2023-09-23] MEDS: HYDROcodone/APAP 5-325MG 1 EACH TAB PO PRN ×2 (14:09→21:34)
--- NOTE | 2023-09-23 15:42 | P.PN ---
Subjective Progress Note Date: 09/23/23 Subjective: Patient seen and examined at bedside. No acute events overnight. This morning when she got up to walk with physical therapy, patient became lightheaded, and was hypotensive. He received IV fluids after that. Pertinent positives and negatives as discussed above, a complete review of systems was performed and all other systems are negative. Vitals Signs Reviewed. General: nontoxic, no distress, appears at stated age Derm: warm, dry, dressing clean, dry, intact Head: atraumatic, normocephalic, symmetric Eyes: EOMI, no lid lag, anicteric sclera Mouth: no lip lesion, mucus membranes moist Cardiovascular: S1S2 reg, no murmur Lungs: CTA bilateral, no rhonchi, no rales , no accessory muscle use Abdominal: soft, nontender to palpation, no guarding, no appreciable organomegaly Ext: no gross muscle atrophy, no edema, no contractures Neuro: CN II-XI grossly intact, no focal neuro deficits Psych: Alert, oriented, appropriate affect Data Reviewed Today: Pertinent Labs: WBC 11.21, hemoglobin 9.1, creatinine 0.79 Imaging: No new imaging Assessment and Plan: Active: Symptomatic hypotension -Resolved with IV fluids -Continue normal saline at 70 mL an hour -Repeat orthostatic vitals after fluids were negative -Repeat BMP tomorrow Status post right hip arthroplasty Leukocytosis, anticipated outcome of surgery Acute blood loss anemia, anticipated outcome of surgery -Pain control with oral norco as needed, IV Dilaudid as needed, monitor for respiratory depression -Senna scheduled -Aspirin 325 twice a day as DVT prophylaxis -CBC repeated tomorrow Hypertension Dyslipidemia -Continue home metoprolol 100 mg daily, niacin 500 mg daily, fish oil 2 g daily Patient is otherwise medically optimized for discharge. Thank you for allowing us to participate in the care of this pleasant patient. Do not hesitate to contact us with questions. Someone can be reached from the [facility] hospitalist group all hours of the day at [phone] or via [employer]. Objective - Vital Signs Vital signs: Vital Signs Temp 98.5 F 09/23/23 13:05 Pulse 77 09/23/23 13:05 Resp 18 09/23/23 13:05 BP 104/62 09/23/23 14:12 Pulse Ox 99 09/23/23 13:05 FiO2 Intake & Output 09/22/23 09/23/23 09/23/23 18:59 06:59 18:59 Intake Total 1451 Output Total 200 Balance 1251 Weight 70.3 kg Intake: IV 1051 Intake, IV Titration 400 Amount Sodium Chloride 0.9% 1, 350 000 ml @ 70 mls/hr IV . [id number] JUJU Rx#:[id number] ceFAZolin 2 gm In Sodium 50 Chloride 0.9% 50 ml @ 100 mls/hr IVPB Q8H JUJU Rx#: [id number] Output: Estimated Blood Loss 200 Other: # Voids 1 3 2 - Labs CBC & Chem 7: 09/23/23 05:05 09/23/23 05:05 Labs: Abnormal Lab Results - Last 24 Hours (Table) 09/23/23 09/23/23 Range/Units 05:05 05:05 WBC 11.21 H (4.50-10.00) X 10*3/uL RBC 3.15 L (4.10-5.20) X 10*6/uL Hgb 9.1 L (12.0-15.0) g/dL Hct 28.3 L (37.2-46.3) % Immature Gran # 0.06 H (0.00-0.04) X 10*3/uL Neutrophils # 8.48 H (1.80-7.70) X 10*3/uL Monocytes # 1.32 H (0.20-1.00) X 10*3/uL Eosinophils # 0 L (0.04-0.35) X 10*3/uL Chloride 110 H (98-107) mmol/L Glucose 118 H (74-99) mg/dL
[2023-09-23] MEDS: SENNOSIDES-DOCUSATE SODIUM 1 EACH TAB PO SCH (21:35)
[2023-09-24] MEDS: HYDROcodone/APAP 5-325MG 1 EACH TAB PO PRN ×2 (04:37→13:28)
[2023-09-24] MEDS: SODIUM CHLORIDE 0.9% 1,000 ML IV SCH (04:37)
[2023-09-24] MEDS: METOPROLOL SUCCINATE (ER) 100 MG TAB.ER.24H PO SCH (08:09)
[2023-09-24] MEDS: ASPIRIN 325 MG TAB PO SCH (08:09)
[2023-09-24] MEDS: NIACIN TR 500 MG CAPLET PO SCH (08:09)
[2023-09-24 08:29] VITALS: BP 152/60; PULSE 101; RESP 16; TEMP 98.7
[2023-09-24] MEDS: SODIUM CHLORIDE 5% OPHTH DROPS 15 ML BTL BOTH EYES SCH (09:30)
[2023-09-24 11:43] LABS: Blood Urea Nitrogen 8.4 mg/dL (9.0-27.0); Calcium 8.6 mg/dL (8.7-10.3); Carbon Dioxide 25.5 mmol/L (21.6-31.8); Chloride 110 mmol/L (96-109); Glucose 103 mg/dL (70-110); Potassium 3.9 mmol/L (3.5-5.5); Sodium 144 mmol/L (135-145)
[2023-09-24 12:35] LABS: Basophils # (A) 0.03 X 10*3/uL (0.00-0.10); Basophils % (A) 0.4 %; Eosinophils % (A) 1.2 %; HCT 26.2 % (37.2-46.3); HGB 8.2 g/dL (12.0-15.0); Hypochromasia (M) 2+; Lymphocytes # (A) 1.31 X 10*3/uL (0.90-5.00); Lymphocytes % (A) 15.6 %; MCHC 31.3 g/dL (32.0-37.0); MCV 92.6 FL (80.0-97.0); Monocytes # (A) 0.87 X 10*3/uL (0.20-1.00); Monocytes % (A) 10.4 %; NRBC Per 100 WBC 0 X 10*3/uL (0.00-0.01); Neutrophils # (A) 6.04 X 10*3/uL (1.80-7.70); Neutrophils % (A) 71.9 %; Platelet Count 139 X 10*3/uL (140-440); RBC 2.83 X 10*6/uL (4.10-5.20); RDW 14.1 % (11.5-14.5); WBC 8.39 X 10*3/uL (4.50-10.00)
--- NOTE | 2023-09-24 13:18 | P.DS ---
Providers Expected date of discharge: 09/24/23 Attending physician: Santos Villarreal Consults: 09/22/23 08:32 Consult Physician Routine Consulting Provider: Ifeanyi Hernandez Consult Reason/Comments: medical management Do you want consulting provider notified?: Yes Primary care physician: Santos Daly - Discharge Diagnosis(es) (1) Osteoarthritis of right hip Current Visit: Yes Status: Acute (2) S/P total hip arthroplasty Current Visit: Yes Status: Acute Hospital Course: This is a 78-year-old female with known history of degenerative arthritis of the right hip. The patient presented for evaluation as an outpatient. After discussion and consideration patient elects to proceed with total hip arthroplasty. The patient is seen preoperatively by Dr. Villarreal and medically cleared for surgery by their primary care physician. Patient is admitted to [facility] on 09/22/2023 for total hip arthroplasty. The procedure is performed without complication or sequelae. The patient is doing well postoperatively. The patient did have a near syncopal episode during this admission which was attributed to orthostatic hypotension. Labs and vital signs are stable on day of discharge. On day of discharge patient's hip incision is healing well. There is minimal erythema. There is no drainage noted at this time. There is minimal soft tissue swelling to the hip and thigh. Patient has full foot and ankle motion without difficulty or pain. Calf is soft and nontender to palpation. Neurovascular status to the right lower extremity is intact. Patient is discharged home in good condition. Please see med rec for accurate list of home medications. Plan - Discharge Summary Discharge Rx Participant: Yes New Discharge Prescriptions: New Sennosides [Senokot] 2 tab PO DAILY PRN #60 tablet PRN Reason: Constipation Aspirin 325 mg PO BID #60 tab HYDROcodone/APAP 5-325MG [[place] 5-325] 1 - 2 tab PO Q6HR PRN #32 tab PRN Reason: Pain No Action Metoprolol Succinate (ER) [Toprol Xl] 100 mg PO DAILY Cholecalciferol [Vitamin D3 (25 Mcg = 1000 Iu)] 50 mcg PO DAILY [place]-3/Dha/Epa/Fish Oil [Fish Oil 1,000 mg Softgel] 2 each PO DAILY Sodium Chloride 5% Ophth Soln [Trish 128] 1 drops BOTH EYES BID Potassium Citrate 99 mg PO DAILY Niacin 500 mg PO DAILY Calcium Carbonate [Calcium] 600 mg PO DAILY Ascorbic Acid [Vitamin C] 500 mg PO DAILY Sodium Chloride 5% Ophth Soln [Trish 128] 1 drops BOTH EYES BID Discharge Medication List Metoprolol Succinate (ER) [Toprol Xl] 100 mg PO DAILY 09/16/23 [History] Ascorbic Acid [Vitamin C] 500 mg PO DAILY 09/17/23 [History] Calcium Carbonate [Calcium] 600 mg PO DAILY 09/17/23 [History] Cholecalciferol [Vitamin D3 (25 Mcg = 1000 Iu)] 50 mcg PO DAILY 09/17/23 [History] Niacin 500 mg PO DAILY 09/17/23 [History] [place]-3/Dha/Epa/Fish Oil [Fish Oil 1,000 mg Softgel] 2 each PO DAILY 09/17/23 [History] Potassium Citrate 99 mg PO DAILY 09/17/23 [History] Sodium Chloride 5% Ophth Soln [Trish 128] 1 drops BOTH EYES BID 09/17/23 [History] Aspirin 325 mg PO BID #60 tab 09/22/23 [Rx] HYDROcodone/APAP 5-325MG [[place] 5-325] 1 - 2 tab PO Q6HR PRN #32 tab 09/22/23 [Rx] Sennosides [Senokot] 2 tab PO DAILY PRN #60 tablet 09/22/23 [Rx] Sodium Chloride 5% Ophth Soln [Trish 128] 1 drops BOTH EYES BID 09/22/23 [History] Follow up Appointment(s)/Referral(s): Santos Villarreal DO [Doctor of Osteopathic Medicine] - 2 Weeks Activity/Diet/Wound Care/Special Instructions: Weightbearing as tolerated with walker. Leave dressing intact. Dressing may be removed by home care nurse or by patient in 7 days. Then change dressing twice daily until follow up. May shower with initial dressing intact and after removal. If dressing become saturated, please remove. Please take aspirin 325mg twice daily for 30 days to prevent blood clots. Recommend use of compression stockings daily until follow up to help prevent swelling and blood clots. May remove at night before sleeping. Please follow-up with [facility] in 2 weeks and call with any questions or concerns, . Discharge Disposition: HOME WITH HOME HEALTH SERVICES
--- NOTE | 2023-09-24 16:36 | P.PN ---
Subjective Progress Note Date: 09/24/23 Subjective: Patient denies lightheadedness, dizziness. Pressures have been stable. Medically cleared for discharge Vitals Signs Reviewed. General: nontoxic, no distress, appears at stated age Derm: warm, dry, dressing clean, dry, intact Head: atraumatic, normocephalic, symmetric Eyes: EOMI, no lid lag, anicteric sclera Mouth: no lip lesion, mucus membranes moist Cardiovascular: S1S2 reg, no murmur Lungs: CTA bilateral, no rhonchi, no rales , no accessory muscle use Abdominal: soft, nontender to palpation, no guarding, no appreciable organomegaly Ext: no gross muscle atrophy, no edema, no contractures Neuro: CN II-XI grossly intact, no focal neuro deficits Psych: Alert, oriented, appropriate affect Data Reviewed Today: Pertinent Labs: WBC 11.21, hemoglobin 9.1, creatinine 0.79 Imaging: No new imaging Assessment and Plan: Active: Symptomatic hypotension -Resolved with IV fluids -Continue normal saline at 70 mL an hour -Repeat orthostatic vitals after fluids were negative -Repeat BMP tomorrow Status post right hip arthroplasty Leukocytosis, anticipated outcome of surgery Acute blood loss anemia, anticipated outcome of surgery -Pain control with oral norco as needed, IV Dilaudid as needed, monitor for respiratory depression -Senna scheduled -Aspirin 325 twice a day as DVT prophylaxis -CBC repeated tomorrow Hypertension Dyslipidemia -Continue home metoprolol 100 mg daily, niacin 500 mg daily, fish oil 2 g daily Patient is otherwise medically optimized for discharge. Thank you for allowing us to participate in the care of this pleasant patient. Do not hesitate to contact us with questions. Someone can be reached from the [facility], [place] [facility] hospitalist group all hours of the day at [phone] or via [employer]. Objective - Vital Signs Vital signs: Vital Signs Temp 98.7 F 09/24/23 08:00 Pulse 101 H 09/24/23 09:08 Resp 16 09/24/23 09:08 BP 152/60 09/24/23 08:00 Pulse Ox 97 09/24/23 08:00 FiO2 Intake & Output 09/23/23 09/24/23 09/24/23 18:59 06:59 18:59 Intake Total 450 Balance 450 Intake: Oral 450 Other: Voiding Method Toilet Toilet # Voids 2 4 - Labs CBC & Chem 7: 09/24/23 05:53 09/24/23 05:53 Labs: Abnormal Lab Results - Last 24 Hours (Table) 09/24/23 09/24/23 Range/Units 05:53 05:53 RBC 2.83 L (4.10-5.20) X 10*6/uL Hgb 8.2 L (12.0-15.0) g/dL Hct 26.2 L (37.2-46.3) % MCHC 31.3 L (32.0-37.0) g/dL Plt Count 139 L (140-440) X 10*3/uL Hypochromasia (manual) 2+ A Chloride 110 H (96-109) mmol/L BUN 8.4 L (9.0-27.0) mg/dL Calcium 8.6 L (8.7-10.3) mg/dL
== END 2023-09-24 14:29 | disposition home health service (06) ==
LOC: OR 05:35 → 4SSUR 08:24 → OR 09-24 14:29
PROVIDERS: ATTEND Orthopaedic Surgery
DX: M16.11 Unilateral primary osteoarthritis, right hip (principal); G89.18 Other acute postprocedural pain; I10 Essential (primary) hypertension; E78.5 Hyperlipidemia, unspecified; F10.90 Alcohol use, unspecified, uncomplicated; Z79.899 Other long term (current) drug therapy
CPT/HCPCS: 27130; 97116; 97161; 97530; 97535; 97166; 64447; 80048 ×2; 85025 ×2; 73501; 73502; C1776; J2250; J1100; J0690 ×2; J2405; J3010; J2795; J2704

== ENCOUNTER 2023-09-25 15:24 | Inpatient (IN) | payer MEDICARE, BC ==
[2023-09-25] MEDS ORDERED: SODIUM CHLORIDE 0.9% 1,000 ML IV STA (15:28)
--- NOTE | 2023-09-25 15:33 | ED ---
Syncope HPI - General Stated Complaint: Syncope Time Seen by Provider: 09/25/23 15:28 - Related Data Home Medications Medication Instructions Recorded Confirmed Metoprolol Succinate (ER) [Toprol 100 mg PO DAILY 09/16/23 09/16/23 Xl] Ascorbic Acid [Vitamin C] 500 mg PO DAILY 09/17/23 09/17/23 Calcium Carbonate [Calcium] 600 mg PO DAILY 09/17/23 09/17/23 Cholecalciferol [Vitamin D3 (25 50 mcg PO DAILY 09/17/23 09/17/23 Mcg = 1000 Iu)] Niacin 500 mg PO DAILY 09/17/23 09/17/23 Landis-3/Dha/Epa/Fish Oil [Fish Oil 2 each PO DAILY 09/17/23 09/17/23 1,000 mg Softgel] Potassium Citrate 99 mg PO DAILY 09/17/23 09/17/23 Sodium Chloride 5% Ophth Soln 1 drops BOTH EYES BID 09/17/23 09/17/23 [Trish 128] Sodium Chloride 5% Ophth Soln 1 drops BOTH EYES BID 09/22/23 09/22/23 [Trish 128] Previous Rx's Medication Instructions Recorded Aspirin 325 mg PO BID #60 tab 09/22/23 HYDROcodone/APAP 5-325MG [[place] 1 - 2 tab PO Q6HR PRN #32 tab 09/22/23 5-325] Sennosides [Senokot] 2 tab PO DAILY PRN #60 tablet 09/22/23 Allergies Allergy/AdvReac Type Severity Reaction Status Date / Time No Known Allergies Allergy Verified 09/22/23 06:04 Review of Systems ROS Statement: Those systems with pertinent positive or pertinent negative responses have been documented in the HPI. ROS Other: All systems not noted in ROS Statement are negative. Past Medical History Past Medical History: Hypertension History of Any Multi-Drug Resistant Organisms: None Reported Past Surgical History: Tubal Ligation Past Psychological History: No Psychological Hx Reported Smoking Status: Never smoker Past Alcohol Use History: None Reported Past Drug Use History: None Reported Disposition Referrals: Santos Daly DO [Primary Care Provider] - 1-2 days
[2023-09-25 16:26] LABS: Basophils % (A) 0 %; Eosinophils # (A) 0.1 k/uL (0-0.7); Eosinophils % (A) 1 %; HCT 28.2 % (34.0-46.0); HGB 9.4 gm/dL (11.4-16.0); Lymphocytes # (A) 0.9 k/uL (1.0-4.8); Lymphocytes % (A) 7 %; MCHC 33.4 g/dL (31.0-37.0); MCV 89.7 fL (80.0-100.0); Mean Platelet Volume 8.5; Monocytes # (A) 0.7 k/uL (0-1.0); Monocytes % (A) 5 %; Neutrophils # (A) 10.6 k/uL (1.3-7.7); Neutrophils % (A) 86 %; Platelet Count 176 k/uL (150-450); RBC 3.15 m/uL (3.80-5.40); RDW 14.2 % (11.5-15.5); WBC 12.3 k/uL (3.8-10.6)
[2023-09-25 16:36] LABS: ALT 18 U/L (4-34); AST 35 U/L (14-36); African American GFR (CKD) >90 (>60 ml/min/1.73 sqM); Albumin 3.5 g/dL (3.5-5.0); Alkaline Phosphatase 106 U/L (38-126); Anion Gap 6 mmol/L; Blood Urea Nitrogen 12 mg/dL (7-17); Calcium 9.2 mg/dL (8.4-10.2); Carbon Dioxide 28 mmol/L (22-30); Chloride 105 mmol/L (98-107); Glucose 138 mg/dL (74-99); INR 0.9 (<1.2); Magnesium 1.9 mg/dL (1.6-2.3); Non-African American GFR(CKD) 85 (>60 ml/min/1.73 sqM); Partial Thromboplastin Time 22.8 sec (22.0-30.0); Phosphorus 3.7 mg/dL (2.5-4.5); Potassium 3.7 mmol/L (3.5-5.1); Prothrombin Time 9.8 sec (10.0-12.5); Sodium 139 mmol/L (137-145); Total Bilirubin 0.6 mg/dL (0.2-1.3); Total Protein 5.9 g/dL (6.3-8.2)
[2023-09-25 16:45] LABS: NT-Pro-B-Type Natriuretic Pept 887 pg/mL
--- NOTE | 2023-09-25 17:28 | XR ---
EXAMINATION TYPE: XR chest 2V DATE OF EXAM: 09/25/2023 COMPARISON: NONE HISTORY: Shortness of breath TECHNIQUE: Frontal and lateral views of the chest are obtained. FINDINGS: Scattered senescent parenchymal changes noted. Hyperinflation compatible with COPD. No evidence for infiltrate. No evidence for atelectasis. Heart size is stable. Mediastinal structures are stable and grossly unremarkable. No evidence for hilar prominence. Degenerative changes dorsal spine. IMPRESSION: 1. No evidence for acute pulmonary disease.
--- NOTE | 2023-09-25 18:20 | CT ---
EXAMINATION TYPE: CT chest angio for PE DATE OF EXAM: 09/25/2023 COMPARISON: none HISTORY: syncope episodes, recent hip sx. r/o PE CT DLP: 270.1 mGycm CONTRAST: CT chest with contrast and 3D reconstruction with MIP imaging is performed with IV Contrast, patient injected with 65ml mL of Isovue 370. Contrast-enhanced CT of the chest was performed through the course of the pulmonary arteries with jabier g and mediastinal window settings submitted. 3D reconstruction with MIP imaging was also performed. PULMONARY ARTERIES: The pulmonary arteries and their major tributaries are patent. I do not see diana dence for sizable filling defect to suggest pulmonary embolic process. LUNGS: The lungs are clear and free of infiltrate. No evidence for atelectasis. No pulmonary nodule or mass is detected. No pleural effusion. MEDIASTINUM: Thoracic aorta is of normal caliber,however, evaluation is limited given timing of the contrast bolus. If there is concern for thoracic aortic pathology consider ALEX. Correlate clinicall y . The heart is not enlarged. No evidence for mediastinal mass. No mediastinal lymph nodes greater than 1cm. HILAR STRUCTURES: No evidence for mass. No hilar lymph nodes greater than 1 cm. UPPER ABDOMEN: No significant abnormality is seen. IMPRESSION: 1. No evidence for Pulmonary embolism at this time.
--- NOTE | 2023-09-25 18:48 | ED ---
General Adult HPI - General Chief complaint: Syncope Stated complaint: Syncope Time Seen by Provider: 09/25/23 15:28 Source: patient Mode of arrival: EMS Limitations: no limitations - History of Present Illness Initial comments: 78-year-old female presents emergency department after she had syncopal episodes in the past 24 hours. Patient is status post hip replacement on the . Patient ended up having a syncopal episode yesterday before going home. States that when she went home she had a another near syncopal event when ambulating down the [place]. Physical therapy was at the house today. They had just started working with the patient when she had a syncopal episode upon standing. Patient was caught and lowered to the ground. Denies any injuries. Denies headache. No chest pain or shortness of breath. She is taking one Boston every 6 hours. Last Boston was at 8 AM this morning. Patient states that she has been eating and drinking. No other alleviating, precipitating or modifying factors - Related Data Home Medications Medication Instructions Recorded Confirmed Ascorbic Acid [Vitamin C] 500 mg PO DAILY 09/17/23 09/25/23 Calcium Carbonate [Calcium] 600 mg PO DAILY 09/17/23 09/25/23 Cholecalciferol [Vitamin D3 (25 50 mcg PO DAILY 09/17/23 09/25/23 Mcg = 1000 Iu)] Niacin 500 mg PO DAILY 09/17/23 09/25/23 Standard-3/Dha/Epa/Fish Oil [Fish Oil 2 cap PO DAILY 09/17/23 09/25/23 1,000 mg Softgel] Potassium Citrate 99 mg PO DAILY 09/17/23 09/25/23 Sodium Chloride 5% Ophth Soln 1 drop BOTH EYES BID 09/17/23 09/25/23 [Trish 128] Previous Rx's Medication Instructions Recorded Aspirin 325 mg PO BID #60 tab 09/22/23 Sennosides [Senokot] 2 tab PO DAILY PRN #60 tablet 09/22/23 Chlorthalidone [Hygroton] 25 mg PO DAILY tab 10/01/23 Ferrous Sulfate [Iron (65 MG 325 mg PO BID-W/MEALS #0 tab 10/01/23 Elemental)] HYDROcodone/APAP 5-325MG [[place] 1 each PO Q4HR PRN #12 tab 10/01/23 5-325] Hydrocortisone Cream 1 applic TOPICAL BID PRN each 10/01/23 [Hydrocortisone 1% Cream] Metoprolol Succinate (ER) [Toprol 12.5 mg PO DAILY tab 10/01/23 XL] Pantoprazole [Protonix] 40 mg PO AC-BRKFST tab 10/01/23 amLODIPine [Norvasc] 5 mg PO DAILY tab 10/01/23 polyethylene glycoL 3350 [Miralax] 17 gm PO DAILY packet 10/01/23 Allergies Allergy/AdvReac Type Severity Reaction Status Date / Time No Known Allergies Allergy Verified 09/25/23 19:08 Review of Systems ROS Statement: Those systems with pertinent positive or pertinent negative responses have been documented in the HPI. ROS Other: All systems not noted in ROS Statement are negative. Past Medical History Past Medical History: Hypertension History of Any Multi-Drug Resistant Organisms: None Reported Past Surgical History: Joint Replacement, Orthopedic Surgery, Tubal Ligation Additional Past Surgical History / Comment(s): right hip Past Psychological History: No Psychological Hx Reported Smoking Status: Never smoker Past Alcohol Use History: None Reported Past Drug Use History: None Reported General Exam Limitations: no limitations General appearance: alert, in no apparent distress Head exam: Present: atraumatic, normocephalic, normal inspection Eye exam: Present: normal appearance, PERRL, EOMI. Absent: scleral icterus, conjunctival injection, periorbital swelling ENT exam: Present: normal exam, mucous membranes moist Neck exam: Present: normal inspection. Absent: tenderness, meningismus, lymphadenopathy Respiratory exam: Present: normal lung sounds bilaterally. Absent: respiratory distress, wheezes, rales, rhonchi, stridor Cardiovascular Exam: Present: regular rate, normal rhythm, normal heart sounds. Absent: systolic murmur, diastolic murmur, rubs, gallop, clicks GI/Abdominal exam: Present: soft, normal bowel sounds. Absent: distended, tenderness, guarding, rebound, rigid Extremities exam: Present: normal inspection, tenderness (right hip - incision is clean dry and intact), normal capillary refill. Absent: pedal edema, joint swelling, calf tenderness Back exam: Present: normal inspection Neurological exam: Present: alert, oriented X3, CN II-XII intact Psychiatric exam: Present: normal affect, normal mood Skin exam: Present: warm, dry, intact, normal color. Absent: rash Course Vital Signs 09/25/23 09/25/23 09/25/23 15:32 15:50 15:57 Temperature 97.8 F Pulse Rate 79 79 Pulse Rate [ 77 Marketing Finance Specialist ] Respiratory 16 20 20 Rate Blood Pressure 147/71 147/71 Blood Pressure 154/55 [Right Arm] O2 Sat by Pulse 98 96 98 Oximetry 09/25/23 09/25/23 09/25/23 16:00 16:02 16:04 Temperature Pulse Rate 77 89 87 Pulse Rate [ Marketing Finance Specialist ] Respiratory 20 20 20 Rate Blood Pressure 154/55 169/80 137/66 Blood Pressure [Right Arm] O2 Sat by Pulse 98 Oximetry 09/25/23 09/25/23 17:00 20:00 Temperature Pulse Rate 65 94 Pulse Rate [ Marketing Finance Specialist ] Respiratory 16 16 Rate Blood Pressure 140/68 153/81 Blood Pressure [Right Arm] O2 Sat by Pulse 98 93 L Oximetry Medical Decision Making - Medical Decision Making Was pt. sent in by a medical professional or institution (, PA, E BUSINESS CONSULTANT, urgent care, hospital, or senior care...) When possible be specific @ -No Did you speak to anyone other than the patient for history (EMS, parent, family, police, friend...)? What history was obtained from this source @ -EMS and son Did you review nursing and triage notes (agree or disagree)? Why? @ -I reviewed and agree with nursing and triage notes Were old charts reviewed (outside hosp., previous admission, EMS record, old EKG, old radiological studies, urgent care reports/EKG's, senior care records)? Report findings @ -I reviewed procedure note and discharge summary from yesterday Differential Diagnosis (chest pain, altered mental status, abdominal pain women, abdominal pain men, vaginal bleeding, weakness, fever, dyspnea, syncope, headac he, dizziness, GI bleed, back pain, seizure, CVA, palpatations, mental health, musculoskeletal)? @ -Differential Syncope: Valvular disease, hypertrophic cardiomyopathy, pulmonary embolism, tamponade, tachycardia, bradycardia, CA, hypovolemia, hemorrhage, dissection, anemia, intr acranial hemorrhage, seizure, hypoglycemia, carbon monoxide poisoning, this is not meant to be an all-inclusive list. EKG interpreted by me (3pts min.). @ -Yes and demonstrates sinus rhythm with a rate of 79. MI interval 148. QRS 110. QTC of 442. No acute ST segment elevations or depressions X-rays interpreted by me (1pt min.). @ -Yes and demonstrates no acute process CT interpreted by me (1pt min.). @ -Yes and demonstrates no PE U/S interpreted by me (1pt. min.). @ -None done What testing was considered but not performed or refused? (CT, X-rays, U/S, labs)? Why? @ -None What meds were considered but not given or refused? Why? @ -None Did you discuss the management of the patient with other professionals (professionals i.e. DrNavin, PA, E BUSINESS CONSULTANT, lab, RT, psych nurse, neonatal social worker, book critic, teacher, flight deck officer, manager case management)? Give summary @ -Spoke with Dr. Anthony who agreed to admission Was smoking cessation discussed for >3mins.? @ -No Was critical care preformed (if so, how long)? @ -No Were there social determinants of health that impacted care today? How? (Homelessness, low income, unemployed, alcoholism, drug addiction, desouza sportation, low edu. Level, literacy, decrease access to med. care, group home, rehab)? @ -No Was there de-escalation of care discussed even if they declined (Discuss DNR or withdrawal of care, Hospice)? DNR status @ -No What co-morbidities impacted this encounter? (DM, HTN, Smoking, COPD, CAD, Cancer, CVA, ARF, Chemo, Hep., AIDS, mental health diagnosis, sleep apnea, morbid obesity)? @ -None Was patient admitted / discharged? Hospital course, mention meds given and route, prescriptions, significant lab abnormalities, going to OR and other pertinent info. @ -Upon arrival patient was placed into room 13. Thorough history and physical exam was performed. Orthostatics are obtained and patient is positive. Patient was given a liter bolus normal saline. Laboratory studies are conducted. D- dimer is elevated and therefore CT of the chest is performed. Results are discussed with the patient. Patient will be admitted as she did have 3 near syncopal/syncopal episodes in the past 24 hours. Patient agreeable to this. Spoke with Dr. Anthony who agreed to admission Undiagnosed new problem with uncertain prognosis? @ -No Drug Therapy requiring intensive monitoring for toxicity (Heparin, Nitro, Insulin, Cardizem)? @ -No Were any procedures done? @ -No Diagnosis/symptom? @ -Recurrent near syncope, orthostatic hypotension, elevated D-dimer, evaluation for PE, status post hip replacement Acute, or Chronic, or Acute on Chronic? @ -Acute Uncomplicated (without systemic symptoms) or Complicated (systemic symptoms)? @ -Complicated Side effects of treatment? @ -No Exacerbation, Progression, or Severe Exacerbation? @ -No Poses a threat to life or bodily function? How? (Chest pain, USA, CA, pneumonia, PE, COPD, DKA, ARF, appy, cholecystitis, CVA, Diverticulitis, Homicidal, Suicidal, threat to staff... and all critical care pts) @ -No - Lab Data Result diagrams: 09/30/23 05:53 09/30/23 05:53 Lab Results 09/25/23 09/25/23 09/25/23 Range/Units 15:36 15:36 15:36 WBC 12.3 H (3.8-10.6) k/uL RBC 3.15 L (3.80-5.40) m/uL Hgb 9.4 L (11.4-16.0) gm/dL Hct 28.2 L (34.0-46.0) % MCV 89.7 (80.0-100.0) fL MCH 30.0 (25.0-35.0) pg MCHC 33.4 (31.0-37.0) g/dL RDW 14.2 (11.5-15.5) % Plt Count 176 (150-450) k/uL MPV 8.5 Immature Gran % (Auto) % Absolute Nucleated RBC % Neutrophils % 86 % Lymphocytes % 7 % Monocytes % 5 % Eosinophils % 1 % Basophils % 0 % Immature Gran # (0.00-0.04) X 10*3/uL Neutrophils # 10.6 H (1.3-7.7) k/uL Lymphocytes # 0.9 L (1.0-4.8) k/uL Monocytes # 0.7 (0-1.0) k/uL Eosinophils # 0.1 (0-0.7) k/uL Basophils # 0.0 (0-0.2) k/uL NRBC/100 WBC Diff (0.00-0.01) X 10*3/uL PT 9.8 L (10.0-12.5) sec INR 0.9 (<1.2) APTT 22.8 (22.0-30.0) sec D-Dimer 2.55 H (<0.60) mg/L FEU Sodium 139 (137-145) mmol/L Potassium 3.7 (3.5-5.1) mmol/L Chloride 105 (98-107) mmol/L Carbon Dioxide 28 (22-30) mmol/L Anion Gap 6 mmol/L BUN 12 (7-17) mg/dL Creatinine 0.66 (0.52-1.04) mg/dL Est GFR (CKD-EPI) (>=60) Est GFR (CKD-EPI)AfAm >90 (>60 ml/min/1.73 sqM) Est GFR (CKD-EPI)NonAf 85 (>60 ml/min/1.73 sqM) BUN/Creatinine Ratio (12.00-20.00) Ratio Glucose 138 H (74-99) mg/dL Calcium 9.2 (8.4-10.2) mg/dL Phosphorus 3.7 (2.5-4.5) mg/dL Magnesium 1.9 (1.6-2.3) mg/dL Iron (50-170) UG/DL TIBC (228-460) UG/DL % Saturation (12.00-45.00) Transferrin (204.0-354.0) mg/dL Ferritin (10.0-291.0) ng/mL Total Bilirubin 0.6 (0.2-1.3) mg/dL AST 35 (14-36) U/L ALT 18 (4-34) U/L Alkaline Phosphatase 106 (38-126) U/L Troponin I (0.000-0.034) ng/mL NT-Pro-B Natriuret Pep 887 pg/mL Total Protein 5.9 L (6.3-8.2) g/dL Albumin 3.5 (3.5-5.0) g/dL Urine Color Urine Appearance (Clear) Urine pH (5.0-8.0) Ur Specific D[place] (1.001-1.035) Urine Protein (Negative) Urine Glucose (UA) (Negative) Urine Ketones (Negative) Urine Blood (Negative) Urine Nitrite (Negative) Urine Bilirubin (Negative) Urine Urobilinogen (<2.0) mg/dL Ur Leukocyte Esterase (Negative) Urine RBC (0-5) /hpf Urine WBC (0-5) /hpf Ur Squamous Epith Cells (0-4) /hpf Urine Mucus (None) /hpf 09/25/23 09/26/23 09/26/23 Range/Units 15:36 02:00 05:57 WBC 11.16 H (3.8-10.6) k/uL RBC 2.86 L (3.80-5.40) m/uL Hgb 8.4 L (11.4-16.0) gm/dL Hct 26.8 L (34.0-46.0) % MCV 93.7 (80.0-100.0) fL MCH 29.4 (25.0-35.0) pg MCHC 31.3 L (31.0-37.0) g/dL RDW 13.5 (11.5-15.5) % Plt Count 246 (150-450) k/uL MPV 11.1 Immature Gran % (Auto) 0.40 % Absolute Nucleated RBC 0 % Neutrophils % 67.9 % Lymphocytes % 20.2 % Monocytes % 8.8 % Eosinophils % 2.2 % Basophils % 0.5 % Immature Gran # 0.04 (0.00-0.04) X 10*3/uL Neutrophils # 7.58 (1.3-7.7) k/uL Lymphocytes # 2.25 (1.0-4.8) k/uL Monocytes # 0.98 (0-1.0) k/uL Eosinophils # 0.25 (0-0.7) k/uL Basophils # 0.06 (0-0.2) k/uL NRBC/100 WBC Diff 0 (0.00-0.01) X 10*3/uL PT (10.0-12.5) sec INR (<1.2) APTT (22.0-30.0) sec D-Dimer (<0.60) mg/L FEU Sodium (137-145) mmol/L Potassium (3.5-5.1) mmol/L Chloride (98-107) mmol/L Carbon Dioxide (22-30) mmol/L Anion Gap mmol/L BUN (7-17) mg/dL Creatinine (0.52-1.04) mg/dL Est GFR (CKD-EPI) (>=60) Est GFR (CKD-EPI)AfAm (>60 ml/min/1.73 sqM) Est GFR (CKD-EPI)NonAf (>60 ml/min/1.73 sqM) BUN/Creatinine Ratio (12.00-20.00) Ratio Glucose (74-99) mg/dL Calcium (8.4-10.2) mg/dL Phosphorus (2.5-4.5) mg/dL Magnesium (1.6-2.3) mg/dL Iron (50-170) UG/DL TIBC (228-460) UG/DL % Saturation (12.00-45.00) Transferrin (204.0-354.0) mg/dL Ferritin (10.0-291.0) ng/mL Total Bilirubin (0.2-1.3) mg/dL AST (14-36) U/L ALT (4-34) U/L Alkaline Phosphatase (38-126) U/L Troponin I <0.012 (0.000-0.034) ng/mL NT-Pro-B Natriuret Pep pg/mL Total Protein (6.3-8.2) g/dL Albumin (3.5-5.0) g/dL Urine Color Colorless Urine Appearance Clear (Clear) Urine pH 6.0 (5.0-8.0) Ur Specific Dutton 1.034 (1.001-1.035) Urine Protein Negative (Negative) Urine Glucose (UA) Negative (Negative) Urine Ketones 1+ H (Negative) Urine Blood Negative (Negative) Urine Nitrite Negative (Negative) Urine Bilirubin Negative (Negative) Urine Urobilinogen <2.0 (<2.0) mg/dL Ur Leukocyte Esterase Trace H (Negative) Urine RBC <1 (0-5) /hpf Urine WBC 6 H (0-5) /hpf Ur Squamous Epith Cells <1 (0-4) /hpf Urine Mucus Rare H (None) /hpf 09/26/23 09/26/23 09/27/23 Range/Units 05:57 05:57 10:52 WBC 6.6 (3.8-10.6) k/uL RBC 3.03 L (3.80-5.40) m/uL Hgb 9.1 L (11.4-16.0) gm/dL Hct 27.6 L (34.0-46.0) % MCV 90.9 (80.0-100.0) fL MCH 29.9 (25.0-35.0) pg MCHC 32.9 (31.0-37.0) g/dL RDW 14.2 (11.5-15.5) % Plt Count 225 (150-450) k/uL MPV 8.3 Immature Gran % (Auto) % Absolute Nucleated RBC % Neutrophils % % Lymphocytes % % Monocytes % % Eosinophils % % Basophils % % Immature Gran # (0.00-0.04) X 10*3/uL Neutrophils # (1.3-7.7) k/uL Lymphocytes # (1.0-4.8) k/uL Monocytes # (0-1.0) k/uL Eosinophils # (0-0.7) k/uL Basophils # (0-0.2) k/uL NRBC/100 WBC Diff (0.00-0.01) X 10*3/uL PT (10.0-12.5) sec INR (<1.2) APTT (22.0-30.0) sec D-Dimer (<0.60) mg/L FEU Sodium 144 (137-145) mmol/L Potassium 3.3 L (3.5-5.1) mmol/L Chloride 106 (98-107) mmol/L Carbon Dioxide 25.9 (22-30) mmol/L Anion Gap 12.10 H mmol/L BUN 8.1 L (7-17) mg/dL Creatinine 0.7 (0.52-1.04) mg/dL Est GFR (CKD-EPI) 88 (>=60) Est GFR (CKD-EPI)AfAm (>60 ml/min/1.73 sqM) Est GFR (CKD-EPI)NonAf (>60 ml/min/1.73 sqM) BUN/Creatinine Ratio 11.57 L (12.00-20.00) Ratio Glucose 107 (74-99) mg/dL Calcium 9.2 (8.4-10.2) mg/dL Phosphorus (2.5-4.5) mg/dL Magnesium (1.6-2.3) mg/dL Iron 11 L (50-170) UG/DL TIBC 256 (228-460) UG/DL % Saturation 4.30 L (12.00-45.00) Transferrin 183.0 L (204.0-354.0) mg/dL Ferritin 188.0 (10.0-291.0) ng/mL Total Bilirubin (0.2-1.3) mg/dL AST (14-36) U/L ALT (4-34) U/L Alkaline Phosphatase (38-126) U/L Troponin I (0.000-0.034) ng/mL NT-Pro-B Natriuret Pep pg/mL Total Protein (6.3-8.2) g/dL Albumin (3.5-5.0) g/dL Urine Color Urine Appearance (Clear) Urine pH (5.0-8.0) Ur Specific D[place] (1.001-1.035) Urine Protein (Negative) Urine Glucose (UA) (Negative) Urine Ketones (Negative) Urine Blood (Negative) Urine Nitrite (Negative) Urine Bilirubin (Negative) Urine Urobilinogen (<2.0) mg/dL Ur Leukocyte Esterase (Negative) Urine RBC (0-5) /hpf Urine WBC (0-5) /hpf Ur Squamous Epith Cells (0-4) /hpf Urine Mucus (None) /hpf 09/27/23 Range/Units 10:52 WBC (3.8-10.6) k/uL RBC (3.80-5.40) m/uL Hgb (11.4-16.0) gm/dL Hct (34.0-46.0) % MCV (80.0-100.0) fL MCH (25.0-35.0) pg MCHC (31.0-37.0) g/dL RDW (11.5-15.5) % Plt Count (150-450) k/uL MPV Immature Gran % (Auto) % Absolute Nucleated RBC % Neutrophils % % Lymphocytes % % Monocytes % % Eosinophils % % Basophils % % Immature Gran # (0.00-0.04) X 10*3/uL Neutrophils # (1.3-7.7) k/uL Lymphocytes # (1.0-4.8) k/uL Monocytes # (0-1.0) k/uL Eosinophils # (0-0.7) k/uL Basophils # (0-0.2) k/uL NRBC/100 WBC Diff (0.00-0.01) X 10*3/uL PT (10.0-12.5) sec INR (<1.2) APTT (22.0-30.0) sec D-Dimer (<0.60) mg/L FEU Sodium 140 (137-145) mmol/L Potassium 3.9 (3.5-5.1) mmol/L Chloride 106 (98-107) mmol/L Carbon Dioxide 28 (22-30) mmol/L Anion Gap 6 mmol/L BUN 6 L (7-17) mg/dL Creatinine 0.59 (0.52-1.04) mg/dL Est GFR (CKD-EPI) (>=60) Est GFR (CKD-EPI)AfAm >90 (>60 ml/min/1.73 sqM) Est GFR (CKD-EPI)NonAf 88 (>60 ml/min/1.73 sqM) BUN/Creatinine Ratio (12.00-20.00) Ratio Glucose 117 H (74-99) mg/dL Calcium 9.2 (8.4-10.2) mg/dL Phosphorus (2.5-4.5) mg/dL Magnesium (1.6-2.3) mg/dL Iron (50-170) UG/DL TIBC (228-460) UG/DL % Saturation (12.00-45.00) Transferrin (204.0-354.0) mg/dL Ferritin (10.0-291.0) ng/mL Total Bilirubin (0.2-1.3) mg/dL AST (14-36) U/L ALT (4-34) U/L Alkaline Phosphatase (38-126) U/L Troponin I (0.000-0.034) ng/mL NT-Pro-B Natriuret Pep pg/mL Total Protein (6.3-8.2) g/dL Albumin (3.5-5.0) g/dL Urine Color Urine Appearance (Clear) Urine pH (5.0-8.0) Ur Specific Dutton (1.001-1.035) Urine Protein (Negative) Urine Glucose (UA) (Negative) Urine Ketones (Negative) Urine Blood (Negative) Urine Nitrite (Negative) Urine Bilirubin (Negative) Urine Urobilinogen (<2.0) mg/dL Ur Leukocyte Esterase (Negative) Urine RBC (0-5) /hpf Urine WBC (0-5) /hpf Ur Squamous Epith Cells (0-4) /hpf Urine Mucus (None) /hpf Disposition Clinical Impression: Syncope, S/P total hip arthroplasty, Orthostatic hypotension Disposition: ADMITTED IP TO THIS HOSP Condition: Stable Is patient prescribed a controlled substance at d/c from ED?: No Time of Disposition: 18:48 Decision to Admit Reason: Admit from EC Decision Date: 09/25/23 Decision Time: 18:48
[2023-09-25] MEDS ORDERED: HYDROcodone/APAP 5-325MG 1 EACH TAB PO PRN (18:49)
[2023-09-25] MEDS ORDERED: NALOXONE 0.4 MG/ML 1 ML VIAL IV PRN (18:49)
[2023-09-25] MEDS: SODIUM CHLORIDE 0.9% 1,000 ML IV SCH (20:28)
[2023-09-25] MEDS ORDERED: SENNOSIDES 8.6 MG TAB PO PRN (20:34)
[2023-09-25] MEDS ORDERED: METOPROLOL SUCCINATE (ER) 100 MG TAB.ER.24H PO SCH (21:00)
--- NOTE | 2023-09-25 21:41 | XR ---
EXAMINATION TYPE: XR Hip Limited RT DATE OF EXAM: 09/25/2023 CLINICAL HISTORY: Postoperative evaluation COMPARISON: 09/22/2023 TECHNIQUE: Single portable view of the right hip was submitted. FINDINGS: Noted are changes of total hip arthroplasty with femoral and acetabular components appearin g well seated. Alignment is anatomic. Postsurgical soft tissue changes are evident. IMPRESSION: Satisfactory postoperative alignment
[2023-09-25] MEDS: ASPIRIN 325 MG TAB PO SCH (22:21)
[2023-09-25] MEDS: SODIUM CHLORIDE 5% OPHTH DROPS 15 ML BTL BOTH EYES SCH (22:22)
--- NOTE | 2023-09-25 22:42 | P.HPIM ---
History of Present Illness H&P Date: 09/25/23 Patient is a 78-year-old male with a PMH of hypertension, hyperlipidemia, status post right total hip arthroplasty on 09/[address] Villarreal who presents to the emergency room with complaints of syncope. The history was supplemented by the patient's son. During her recent hospitalization, the patient had a near syncopal episode which was initially attributed to orthostatic hypotension. She was discharged home yesterday and reports having a near syncopal episode yesterday and a syncopal episode today. Reports that the episodes are usually occurring shortly after standing up and taking a few steps. She was with her PT at home earlier today and had a sudden onset of lightheadedness and subsequently had to be eased down to the ground. She did not suffer a fall or experience head trauma. She does report a prodrome of lightheadedness and feeling cold and clammy just before losing consciousness. No reports of confusion and denied urinary incontinence or tongue biting. Denies experiencing chest discomfort, shortness of breath, or palpitations. She reports that none of these episodes resulted in an overt fall and head trauma. Reports feeling well at the time of interview and had no additional complaints. Does report mild right hip stiffness postoperatively with mild pain, well-controlled with Stigler 5's at home. Denies experiencing fever, chills, cough, nausea, vomiting, abdominal pain, diarrhea. Of note, patient's family notes that they wish for the patient to go to [facility] upon discharge as they do not feel that she is safe to be home by herself. Chest CTA in the emergency room was unremarkable with chest x-ray also unremarkable. A hip x-ray revealed no acute abnormalities with EKG showing sinus rhythm with sinus arrhythmia at 79 bpm with left axis deviation and poor R-wave progression as reviewed by me with QTC 442. Laboratory evaluation was remarkable for leukocytosis of 12.3, hemoglobin 9.4, glucose 138, troponin less than 0.012, pro BNP 887. Orthostatic vitals in the emergency room were positive with BP 169/80 while sitting and dropped to 137/66 upon standing. ED documentation reviewed and case discussed with ED provider. Review of systems: Pertinent positives and negatives as discussed in HPI, a complete review of systems was performed and all other systems are negative. Physical examination: Vital signs reviewed General: non toxic, no distress, appears at stated age, normal weight Derm: no unusual rashes/lesions, warm Head: atraumatic, normocephalic, symmetric Eyes: EOMI, no lid lag, anicteric sclera, pupils equal round reactive to light ENT: Nose and ears atraumatic Neck: No cervical lymphadenopathy, trachea midline, supple Mouth: no lip lesion, mucus membranes moist Cardiovascular: S1S2 reg, no murmur, positive dorsalis pedis pulse bilateral, no edema Lungs: CTA bilateral, no rhonchi, no rales, no accessory muscle use Abdominal: soft, nontender to palpation, no guarding Ext: muscle strength 5 out of 5 in all 4 extremities grossly except proximal RLE postsurgically, R anterior hip dressing clean and dry, no gross muscle atrophy, no contractures, Neuro: CN II-XI grossly intact, no gross focal neuro deficits Psych: Alert, oriented, appropriate affect Assessment: Syncope, likely due to orthostatic hypotension Status post right total hip arthroplasty on 09/[address] Villarreal Chronic conditions: Hypertension, hyperlipidemia Imaging: Chest CTA in the emergency room was unremarkable with chest x-ray also unremarkable. A hip x-ray revealed no acute abnormalities with EKG showing sinus rhythm with sinus arrhythmia at 79 bpm with left axis deviation and poor R-wave progression as reviewed by me with QTC 442. Data Review: Laboratory evaluation was remarkable for leukocytosis of 12.3, hemoglobin 9.4, glucose 138, troponin less than 0.012, pro BNP 887. Orthostatic vitals in the emergency room were positive with BP 169/80 while sitting and dropped to 137/66 upon standing. Plan: Continue IV fluids with normal saline 130 mL/h Fall precautions Cardiac monitoring Follow-up U[facility] Dr. Villarreal consulted Continue with pain control Continue remaining home medications PT consult for placement DVT prophylaxis: Lovenox Subq The patient is admitted with an anticipated less than 2 midnight stay for evaluation of syncope CODE STATUS: Full Code Discussed with: Patient Anticipated discharge place: [facility] Past Medical History Past Medical History: Hypertension History of Any Multi-Drug Resistant Organisms: None Reported Past Surgical History: Joint Replacement, Orthopedic Surgery, Tubal Ligation Additional Past Surgical History / Comment(s): right hip, Cataracts removed bilat Past Psychological History: No Psychological Hx Reported Smoking Status: Never smoker Past Alcohol Use History: None Reported Past Drug Use History: None Reported Medications and Allergies Home Medications Medication Instructions Recorded Confirmed Type Metoprolol Succinate (ER) [Toprol 100 mg PO HS 09/16/23 09/25/23 History Xl] Ascorbic Acid [Vitamin C] 500 mg PO DAILY 09/17/23 09/25/23 History Calcium Carbonate [Calcium] 600 mg PO DAILY 09/17/23 09/25/23 History Cholecalciferol [Vitamin D3 (25 50 mcg PO DAILY 09/17/23 09/25/23 History Mcg = 1000 Iu)] Niacin 500 mg PO DAILY 09/17/23 09/25/23 History [place]-3/Dha/Epa/Fish Oil [Fish Oil 2 cap PO DAILY 09/17/23 09/25/23 History 1,000 mg Softgel] Potassium Citrate 99 mg PO DAILY 09/17/23 09/25/23 History Sodium Chloride 5% Ophth Soln 1 drop BOTH EYES BID 09/17/23 09/25/23 History [Trish 128] Aspirin 325 mg PO BID #60 tab 09/22/23 09/25/23 Rx HYDROcodone/APAP 5-325MG [[place] 1 - 2 tab PO Q6HR PRN #32 tab 09/22/23 09/25/23 Rx 5-325] Sennosides [Senokot] 2 tab PO DAILY PRN #60 tablet 09/22/23 09/25/23 Rx Allergies Allergy/AdvReac Type Severity Reaction Status Date / Time No Known Allergies Allergy Verified 09/25/23 19:08 Physical Exam Vitals: Vital Signs Temp Pulse Pulse Resp BP BP Pulse Ox 09/25/23 20:00 94 16 153/81 93 L 09/25/23 17:00 65 16 140/68 98 09/25/23 16:04 87 20 137/66 98 09/25/23 16:02 89 20 169/80 09/25/23 16:00 77 20 154/55 09/25/23 15:57 77 20 154/55 98 09/25/23 15:50 79 20 147/71 96 09/25/23 15:32 97.8 F 79 16 147/71 98 Intake and Output 09/25/23 09/25/23 09/25/23 06:59 14:59 22:59 Other: Weight 68.946 kg Results CBC & Chem 7: 09/25/23 15:36 01/19/24 15:36 Labs: Abnormal Lab Results - Last 24 Hours (Table) 09/25/23 09/25/23 09/25/23 Range/Units 15:36 15:36 15:36 WBC 12.3 H (3.8-10.6) k/uL RBC 3.15 L (3.80-5.40) m/uL Hgb 9.4 L (11.4-16.0) gm/dL Hct 28.2 L (34.0-46.0) % Neutrophils # 10.6 H (1.3-7.7) k/uL Lymphocytes # 0.9 L (1.0-4.8) k/uL PT 9.8 L (10.0-12.5) sec D-Dimer 2.55 H (<0.60) mg/L FEU Glucose 138 H (74-99) mg/dL Total Protein 5.9 L (6.3-8.2) g/dL
[2023-09-26 02:25] LABS: Appearance,Urine Clear (Clear); Bilirubin,Urine Negative (Negative); Blood,Urine Negative (Negative); Color,Urine Colorless; Glucose,Urine (UA) Negative (Negative); Ketones,Urine 1+ (Negative); Leukocyte Esterase,Urine Trace (Negative); Mucus,Urine Rare /hpf; Nitrite,Urine Negative (Negative); Protein,Urine Negative (Negative); RBC,Urine <1 /hpf (0-5); Specific Gravity,Urine 1.034 (1.001-1.035); Squamous Epithelial Cell,Urine <1 /hpf (0-4); Urobilinogen,Urine <2.0 mg/dL (<2.0); WBC,Urine 6 /hpf (0-5)
[2023-09-26] MEDS: SODIUM CHLORIDE 0.9% 1,000 ML IV SCH ×3 (05:50→20:55)
[2023-09-26] MEDS ORDERED: NON FORMULARY DRUG (Omega-3/Dha/Epa/Fish Oil [Fish Oil 1,000 Mg Softgel] 1 EACH Capsule) PO SCH (09:00)
[2023-09-26] MEDS ORDERED: NON FORMULARY DRUG (Potassium Citrate [Potassium Citrate] 99 MG Capsule) PO SCH (09:00)
[2023-09-26] MEDS: SODIUM CHLORIDE 5% OPHTH DROPS 15 ML BTL BOTH EYES SCH ×2 (09:14→20:40)
[2023-09-26] MEDS: NIACIN TR 500 MG CAPLET PO SCH (09:14)
[2023-09-26] MEDS: ASPIRIN 325 MG TAB PO SCH ×2 (09:14→20:39)
[2023-09-26] MEDS: CHOLECALCIFEROL 25 MCG (1000 IU) TABLET PO SCH (09:14)
[2023-09-26] MEDS: ASCORBIC ACID 500 MG TAB PO SCH (09:14)
[2023-09-26] MEDS: CALCIUM CARBONATE 500 MG CHEWABLE PO SCH (09:14)
--- NOTE | 2023-09-26 10:21 | P.CNOR ---
History of Present Illness - [facility] Consult date: 09/26/23 Requesting physician: Tere Puentes Consult reason: other (Status post right total hip arthroplasty) History of present illness: Patient is a very pleasant 78-year-old female who is seen and examined the bedside for further evaluation of her right hip. She is status post right total hip arthroplasty performed on 09/22/2023. She was discharged home on 09/24/2023. She presented back to the emergency department for further evaluation after experiencing syncopal episodes at home over the past 24 hours. She is not complaining of any significant pain in her right hip. She has been ambulating with the assistance of a walker but does continue ambulating gingerly on her right lower extremity. She denies any falls or specific injury to her right hip following discharge from the hospital. Patient does not have any other complaints at the bedside. Patient is being seen and examined by medicine and is admitted to their service. They have ordered an echocardiogram. Past Medical History Past Medical History: Hypertension History of Any Multi-Drug Resistant Organisms: None Reported Past Surgical History: Joint Replacement, Orthopedic Surgery, Tubal Ligation Additional Past Surgical History / Comment(s): right hip Past Psychological History: No Psychological Hx Reported Smoking Status: Never smoker Past Alcohol Use History: None Reported Past Drug Use History: None Reported Medications and Allergies Home Medications Medication Instructions Recorded Confirmed Type Metoprolol Succinate (ER) [Toprol 100 mg PO HS 09/16/23 09/25/23 History Xl] Ascorbic Acid [Vitamin C] 500 mg PO DAILY 09/17/23 09/25/23 History Calcium Carbonate [Calcium] 600 mg PO DAILY 09/17/23 09/25/23 History Cholecalciferol [Vitamin D3 (25 50 mcg PO DAILY 09/17/23 09/25/23 History Mcg = 1000 Iu)] Niacin 500 mg PO DAILY 09/17/23 09/25/23 History [place]-3/Dha/Epa/Fish Oil [Fish Oil 2 cap PO DAILY 09/17/23 09/25/23 History 1,000 mg Softgel] Potassium Citrate 99 mg PO DAILY 09/17/23 09/25/23 History Sodium Chloride 5% Ophth Soln 1 drop BOTH EYES BID 09/17/23 09/25/23 History [Trish 128] Aspirin 325 mg PO BID #60 tab 09/22/23 09/25/23 Rx HYDROcodone/APAP 5-325MG [[place] 1 - 2 tab PO Q6HR PRN #32 tab 09/22/23 09/25/23 Rx 5-325] Sennosides [Senokot] 2 tab PO DAILY PRN #60 tablet 09/22/23 09/25/23 Rx Allergies Allergy/AdvReac Type Severity Reaction Status Date / Time No Known Allergies Allergy Verified 09/25/23 19:08 Physical Examination Physical Exam Total Hip Arthroplasty: Status post surgical day number 4 Patient is examined lying in bed Patient is awake and alert, and oriented 3 Vital signs stable Good chest excursion with deep inspiration and expiration No signs or symptoms of DVT; no calf pain Dressing of the right hip is clean, dry, and intact; no erythema, purulence, or signs of infection Mild bruising around the surgical site of the right hip Small superficial abrasion near the skin fold at the right inguinal space without obvious infection or any active drainage; superficial abrasion is dry Dorsiflexion, plantarflexion, and extensor hallucis longus positive sustained on the right Neurovascularly intact bilateral lower extremities Results Pertinent studies: X-ray of the right hip taken on 09/25/2023: Evidence of right total hip arthroplasty with retained hardware with femoral and acetabular components appearing to be well seated and good alignment and good position with no diana dence of fracture or dislocation - Labs Labs: Abnormal Lab Results - Last 24 Hours (Table) 09/25/23 09/25/23 09/25/23 Range/Units 15:36 15:36 15:36 WBC 12.3 H (3.8-10.6) k/uL RBC 3.15 L (3.80-5.40) m/uL Hgb 9.4 L (11.4-16.0) gm/dL Hct 28.2 L (34.0-46.0) % Neutrophils # 10.6 H (1.3-7.7) k/uL Lymphocytes # 0.9 L (1.0-4.8) k/uL PT 9.8 L (10.0-12.5) sec D-Dimer 2.55 H (<0.60) mg/L FEU Glucose 138 H (74-99) mg/dL Total Protein 5.9 L (6.3-8.2) g/dL Urine Ketones (Negative) Ur Leukocyte Esterase (Negative) Urine WBC (0-5) /hpf Urine Mucus (None) /hpf 09/26/23 Range/Units 02:00 WBC (3.8-10.6) k/uL RBC (3.80-5.40) m/uL Hgb (11.4-16.0) gm/dL Hct (34.0-46.0) % Neutrophils # (1.3-7.7) k/uL Lymphocytes # (1.0-4.8) k/uL PT (10.0-12.5) sec D-Dimer (<0.60) mg/L FEU Glucose (74-99) mg/dL Total Protein (6.3-8.2) g/dL Urine Ketones 1+ H (Negative) Ur Leukocyte Esterase Trace H (Negative) Urine WBC 6 H (0-5) /hpf Urine Mucus Rare H (None) /hpf H & H 09/25/23 Range/Units 15:36 Hgb 9.4 L (11.4-16.0) gm/dL Hct 28.2 L (34.0-46.0) % Coagulation 09/25/23 Range/Units 15:36 INR 0.9 (<1.2) Result Diagrams: 09/25/23 15:36 09/25/23 15:36 Assessment and Plan Assessment: Assessment: Syncope, likely due to orthostatic hypotension Status post right total hip arthroplasty performed 09/22/2023 Right hip pain History of hypertension Hyperlipidemia (1) History of hypertension Current Visit: Yes Status: Acute Code(s): Z86.79 - PERSONAL HISTORY OF OTHER DISEASES OF THE CIRCULATORY SYSTEM SNOMED Code(s): 458670069 (2) Hyperlipidemia Current Visit: Yes Status: Acute Code(s): E78.5 - HYPERLIPIDEMIA, UNSPECIFIED SNOMED Code(s): 94882130 (3) Right hip pain Current Visit: Yes Status: Acute Code(s): M25.551 - PAIN IN RIGHT HIP SNOMED Code(s): 46239476 (4) Orthostatic hypotension Current Visit: Yes Status: Acute Code(s): I95.1 - ORTHOSTATIC HYPOTENSION SNOMED Code(s): 58420100 (5) S/P total hip arthroplasty Current Visit: Yes Status: Acute Code(s): Z96.649 - PRESENCE OF UNSPECIFIED ARTIFICIAL HIP JOINT SNOMED Code(s): 696236068245 (6) Syncope Current Visit: Yes Status: Acute Code(s): R55 - SYNCOPE AND COLLAPSE SNOMED Code(s): 415511909 (7) Osteoarthritis of right hip Current Visit: No Status: Acute Code(s): M16.11 - UNILATERAL PRIMARY OSTEOARTHRITIS, RIGHT HIP SNOMED Code(s): 452892508878199 Plan: Plan: 1. Patient to continue to be weight-bear as tolerated on the right lower extremity; patient may work with physical therapy to increase mobility and ambulation 2. Patient is encouraged to utilize a walker to aid in ambulation as needed. 3. Continue pain control 4. Patient will continue to be seen and examined by medicine for her syncopal episodes; echocardiogram currently ordered 5. Continue with with anticoagulation therapy aspirin 325 mg twice a day over the next 4 weeks 6. Patient's right total hip arthroplasty hardware remains in good alignment and good position. There is no evidence of hardware fracture, loosening, or fatigue. Patient is stable from an orthopedic standpoint. Patient is clear for discharge from an orthopedic standpoint. Patient can follow-up with Dr. Santos Villarreal at [facility] in 2-3 weeks following discharge Time with Patient: Greater than 30 (Including obtaining history, physical examination, reviewing of imaging, and dictation.)
--- NOTE | 2023-09-26 11:20 | P.PN ---
Subjective Progress Note Date: 09/26/23 Patient is a 78-year-old male with a PMH of hypertension, hyperlipidemia, status post right total hip arthroplasty on 09/[address] Villarreal who presents to the emergency room with complaints of syncope. The history was supplemented by the patient's son. During her recent hospitalization, the patient had a near syncopal episode which was initially attributed to orthostatic hypotension. She was discharged home yesterday and reports having a near syncopal episode yesterday and a syncopal episode today. Reports that the episodes are usually occurring shortly after standing up and taking a few steps. She was with her PT at home earlier today and had a sudden onset of lightheadedness and subsequently had to be eased down to the ground. She did not suffer a fall or experience head trauma. She does report a prodrome of lightheadedness and feeling cold and clammy just before losing consciousness. Of note, patient's family notes that they wish for the patient to go to [facility] upon discharge as they do not feel that she is safe to be home by herself. Chest CTA in the emergency room was unremarkable with chest x-ray also unremarkable. A hip x-ray revealed no acute abnormalities with EKG showing sinus rhythm with sinus arrhythmia at 79 bpm with left axis deviation and poor R-wave progression as reviewed by me with QTC 442. Laboratory evaluation was remarkable for leukocytosis of 12.3, hemoglobin 9.4, glucose 138, troponin less than 0.012, pro BNP 887. Orthostatic vitals in the emergency room were positive with BP 169/80 while sitting and dropped to 137/66 upon standing. 09/26 Patient was seen and examined. No lightheadedness today. Reports recent increase in Metoprolol with her PCP in May, no symptoms until post surgery. CBC and BMP pending at the time of this note. General: non toxic, no distress, appears at stated age Derm: warm, dry Head: atraumatic, normocephalic, symmetric, protruding tounge Eyes: EOMI, no lid lag, anicteric sclera Mouth: no lip lesion, mucus membranes moist Cardiovascular: S1S2 reg, no murmur Lungs: Clear to auscultation bilaterally, no rhonchi, no rales Abdominal: soft, nontender to palpation, no guarding, no appreciable organomegaly. Ext: no gross muscle atrophy, no edema, no contractures Neuro: No focal neurologic deficits. Psych: Alert and oriented x 3. Based on my assessment of this patient, this patient meets a moderate complexity level of care. Patient has an acute diagnosis of syncope that poses a threat to life or bodily function. Syncope: Multifactorial. Reported Orthostats + in the ED. She is also on Metoprolol that could be delaying her cardiac response to changes in position. Also acute blood loss anemia. Obtain Echo. Decreased IVF to NS at 75 cc/hr. Fall precautions. PT and OT consult. Hypertension: Isolated systolic. Discontinue Metoprolol. Start Chlorthalidone 25 mg PO QD and Amlopidine 10 mg PO QD. Add ACEi if need better BP control. Acute blood loss anemia: Obtain iron studies. Start ferrous sulfate 325 mg PO BID. Leukocytosis: Possibly reactive. No signs of active infection. Monitor fever profile. Elevated D-Dimer: CTA chest ruled out PE. CODE STATUS: FULL CODE. DVT Prophylaxis: ASA GI Prophylaxis: Designated medical POA if patient is not able to make medical decisions for themselves: I have reviewed the following energy sales consultant notes: I have reviewed the results of the following tests: I have ordered the following tests: Pending: CBC, BMP. Iron studies. I have discussed the care of this patient with the following independent historian: I have independently interpreted the following test below: I have discussed the management of this patient with the following physician: Objective - Vital Signs Vital signs: Vital Signs Temp 98.4 F 09/26/23 07:00 Pulse 55 L 09/26/23 07:00 Resp 15 09/26/23 07:00 BP 138/75 09/26/23 07:00 Pulse Ox 94 L 09/26/23 07:00 FiO2 Intake & Output 09/25/23 09/26/23 09/26/23 18:59 06:59 18:59 Weight 68.946 kg 68.946 kg Other: # Bowel Movements 0 - Labs CBC & Chem 7: 09/25/23 15:36 09/25/23 15:36 Labs: Abnormal Lab Results - Last 24 Hours (Table) 09/25/23 09/25/23 09/25/23 Range/Units 15:36 15:36 15:36 WBC 12.3 H (3.8-10.6) k/uL RBC 3.15 L (3.80-5.40) m/uL Hgb 9.4 L (11.4-16.0) gm/dL Hct 28.2 L (34.0-46.0) % Neutrophils # 10.6 H (1.3-7.7) k/uL Lymphocytes # 0.9 L (1.0-4.8) k/uL PT 9.8 L (10.0-12.5) sec D-Dimer 2.55 H (<0.60) mg/L FEU Glucose 138 H (74-99) mg/dL Total Protein 5.9 L (6.3-8.2) g/dL Urine Ketones (Negative) Ur Leukocyte Esterase (Negative) Urine WBC (0-5) /hpf Urine Mucus (None) /hpf 09/26/23 Range/Units 02:00 WBC (3.8-10.6) k/uL RBC (3.80-5.40) m/uL Hgb (11.4-16.0) gm/dL Hct (34.0-46.0) % Neutrophils # (1.3-7.7) k/uL Lymphocytes # (1.0-4.8) k/uL PT (10.0-12.5) sec D-Dimer (<0.60) mg/L FEU Glucose (74-99) mg/dL Total Protein (6.3-8.2) g/dL Urine Ketones 1+ H (Negative) Ur Leukocyte Esterase Trace H (Negative) Urine WBC 6 H (0-5) /hpf Urine Mucus Rare H (None) /hpf
[2023-09-26 12:45] LABS: BUN/Creat Ratio 11.57 Ratio (12.00-20.00); Blood Urea Nitrogen 8.1 mg/dL (9.0-27.0); Calcium 9.2 mg/dL (8.7-10.3); Carbon Dioxide 25.9 mmol/L (21.6-31.8); Chloride 106 mmol/L (96-109); Glucose 107 mg/dL (70-110); Potassium 3.3 mmol/L (3.5-5.5); Sodium 144 mmol/L (135-145)
[2023-09-26] MEDS: CHLORTHALIDONE 25 MG TAB PO SCH (12:49)
[2023-09-26] MEDS: amLODIPine 10 MG TAB PO SCH (12:49)
[2023-09-26 12:54] LABS: Basophils # (A) 0.06 X 10*3/uL (0.00-0.10); Basophils % (A) 0.5 %; Eosinophils # (A) 0.25 X 10*3/uL (0.04-0.35); Eosinophils % (A) 2.2 %; HCT 26.8 % (37.2-46.3); HGB 8.4 g/dL (12.0-15.0); Lymphocytes # (A) 2.25 X 10*3/uL (0.90-5.00); Lymphocytes % (A) 20.2 %; MCH 29.4 pg (27.0-32.0); MCHC 31.3 g/dL (32.0-37.0); MCV 93.7 FL (80.0-97.0); Mean Platelet Volume 11.1 FL (9.5-12.2); Monocytes # (A) 0.98 X 10*3/uL (0.20-1.00); Monocytes % (A) 8.8 %; NRBC Per 100 WBC 0 X 10*3/uL (0.00-0.01); Neutrophils # (A) 7.58 X 10*3/uL (1.80-7.70); Neutrophils % (A) 67.9 %; Platelet Count 246 X 10*3/uL (140-440); RBC 2.86 X 10*6/uL (4.10-5.20); RDW 13.5 % (11.5-14.5); WBC 11.16 X 10*3/uL (4.50-10.00)
[2023-09-26] MEDS ORDERED: POTASSIUM CHLORIDE ER 20 MEQ TAB.ER PO STA (13:15)
[2023-09-26] MEDS: FERROUS SULFATE 325 MG TAB PO SCH (17:41)
[2023-09-26] MEDS ORDERED: diphenhydrAMINE 25 MG CAP PO STA (21:41)
[2023-09-27] MEDS: FERROUS SULFATE 325 MG TAB PO SCH ×2 (05:19→17:29)
[2023-09-27] MEDS: CHLORTHALIDONE 25 MG TAB PO SCH (08:56)
[2023-09-27] MEDS: amLODIPine 10 MG TAB PO SCH (08:56)
[2023-09-27 09:18] LABS: % Iron Saturation 4.3 (12.00-45.00)
[2023-09-27] MEDS ORDERED: ONDANSETRON 4 MG/2 ML VIAL IVP PRN (09:19)
[2023-09-27] MEDS ORDERED: HYDROCORTISONE 1% CREAM 30 GM TUBE TOPICAL PRN (09:19)
[2023-09-27] MEDS ORDERED: ONDANSETRON 4 MG/2 ML VIAL IVP STA (09:19)
[2023-09-27] MEDS: SODIUM FERRIC GLUCONAT-SUCROSE 125 MG in SODIUM CHLORIDE 0.9% 100 ML IVPB SCH (09:59)
[2023-09-27] MEDS: NIACIN TR 500 MG CAPLET PO SCH (10:00)
[2023-09-27] MEDS: SODIUM CHLORIDE 5% OPHTH DROPS 15 ML BTL BOTH EYES SCH ×2 (10:00→23:50)
[2023-09-27] MEDS: ASCORBIC ACID 500 MG TAB PO SCH (10:00)
[2023-09-27] MEDS: CHOLECALCIFEROL 25 MCG (1000 IU) TABLET PO SCH (10:00)
[2023-09-27] MEDS: SODIUM CHLORIDE 0.9% 1,000 ML IV SCH (10:00)
[2023-09-27] MEDS: CALCIUM CARBONATE 500 MG CHEWABLE PO SCH (10:00)
[2023-09-27] MEDS: ASPIRIN 325 MG TAB PO SCH (10:10)
--- NOTE | 2023-09-27 11:26 | P.PN ---
Subjective Progress Note Date: 09/27/23 Patient is a 78-year-old male with a PMH of hypertension, hyperlipidemia, status post right total hip arthroplasty on 09/[address] Villarreal who presents to the emergency room with complaints of syncope. The history was supplemented by the patient's son. During her recent hospitalization, the patient had a near syncopal episode which was initially attributed to orthostatic hypotension. She was discharged home yesterday and reports having a near syncopal episode yesterday and a syncopal episode today. Reports that the episodes are usually occurring shortly after standing up and taking a few steps. She was with her PT at home earlier today and had a sudden onset of lightheadedness and subsequently had to be eased down to the ground. She did not suffer a fall or experience head trauma. She does report a prodrome of lightheadedness and feeling cold and clammy just before losing consciousness. Of note, patient's family notes that they wish for the patient to go to [facility] upon discharge as they do not feel that she is safe to be home by herself. Chest CTA in the emergency room was unremarkable with chest x-ray also unremarkable. A hip x-ray revealed no acute abnormalities with EKG showing sinus rhythm with sinus arrhythmia at 79 bpm with left axis deviation and poor R-wave progression as reviewed by me with QTC 442. Laboratory evaluation was remarkable for leukocytosis of 12.3, hemoglobin 9.4, glucose 138, troponin less than 0.012, pro BNP 887. Orthostatic vitals in the emergency room were positive with BP 169/80 while sitting and dropped to 137/66 upon standing. Patient was admitted for orthostatic hypotension and PT/OT evaluation for possible SNF. Her syncope was thought to be multifactorial (Orthostatic +, Metoprolol, acute blood loss anemia). She was started on IV fluids. Her Metoprolol was discontinued and she was started on Chlorthalidone and Amlodipine for treatment of isolated systolic hypertension. 09/27 Patient was seen and examined. She reports feeling nauseated. No lightheadedness when ambulating today. Orthostats remain positive today (DBP dropped by 10). She is tachycardic with HR in the low 100s. I will re-start Metoprolol at a lower dose of 12.5 mg PO QD. Amlodipine dose decreased to 5 mg PO QD and continued on chlorthalidone 25 mg PO QD. Currently getting NS at 75 cc/hr. Iron studies shows Iron of 11, Ferritin 188. Echo is pending. PT and OT consult is pending. General: non toxic, no distress, appears at stated age Derm: warm, dry Head: atraumatic, normocephalic, symmetric Eyes: EOMI, no lid lag, anicteric sclera Mouth: no lip lesion, mucus membranes moist Cardiovascular: S1S2 reg, no murmur Lungs: Clear to auscultation bilaterally, no rhonchi, no rales Ext: no gross muscle atrophy, no edema, no contractures Neuro: No focal neurologic deficits. Psych: Alert and oriented x 3. Based on my assessment of this patient, this patient meets a moderate complexity level of care. Patient has an acute diagnosis of syncope that poses a threat to life or bodily function. Syncope: Multifactorial. Orthostats +. She is also on Metoprolol XL 100 mg PO QHS that could be delaying her cardiac response to changes in position. Also acute blood loss anemia. Obtain Echo. NS at 75 cc/hr. Fall precautions. PT and OT consult. Nausea: Zofran 4 mg IV Q6H ordered. Tums 500 mg PO QD. Start Protonix 40 mg PO QD. She is on ASA 325 mg PO BID for DVT prophylaxis from her recent Orthopedic surgery which I will stop for now and start Lovenox. Hypertension: Isolated systolic. Start Metoprolol 12.5 mg PO QD. Continue Chlorthalidone 25 mg PO QD and decreased Amlopidine to 5 mg PO QD. Add ACEi if need better BP control. Acute blood loss anemia: Iron studies as above. Start ferric gluconate 125 mg IV QD. Continue ferrous sulfate 325 mg PO BID. Leukocytosis: Possibly reactive. No signs of active infection. Monitor fever profile. Elevated D-Dimer: CTA chest ruled out PE. CODE STATUS: FULL CODE. DVT Prophylaxis: Lovenox SQ GI Prophylaxis: Protonix PO Designated medical POA if patient is not able to make medical decisions for themselves: I have reviewed the following solar energy consultant and designer notes: Ortho note. I have reviewed the results of the following tests: Iron studies I have ordered the following tests: Pending: CBC, BMP, Echo. I have discussed the care of this patient with the following independent historian: DAVID. I have independently interpreted the following test below: I have discussed the management of this patient with the following physician: Objective - Vital Signs Vital signs: Vital Signs Temp 98.3 F 09/27/23 07:00 Pulse 109 H 09/27/23 09:58 Resp 16 09/27/23 07:00 BP 131/72 09/27/23 09:58 Pulse Ox 94 L 09/27/23 09:58 FiO2 21 09/27/23 09:19 Intake & Output 09/26/23 09/27/23 09/27/23 18:59 06:59 18:59 Other: Voiding Method Toilet Toilet # Voids 2 3 # Bowel Movements 2 - Labs CBC & Chem 7: 09/26/23 05:57 09/26/23 05:57 Labs: Abnormal Lab Results - Last 24 Hours (Table) 09/26/23 09/26/23 09/26/23 Range/Units 05:57 05:57 05:57 WBC 11.16 H (4.50-10.00) X 10*3/uL RBC 2.86 L (4.10-5.20) X 10*6/uL Hgb 8.4 L (12.0-15.0) g/dL Hct 26.8 L (37.2-46.3) % MCHC 31.3 L (32.0-37.0) g/dL Potassium 3.3 L (3.5-5.5) mmol/L Anion Gap 12.10 H (4.00-12.00) mmol/L BUN 8.1 L (9.0-27.0) mg/dL BUN/Creatinine Ratio 11.57 L (12.00-20.00) Ratio Iron 11 L (50-170) UG/DL % Saturation 4.30 L (12.00-45.00) Transferrin 183.0 L (204.0-354.0) mg/dL
[2023-09-27 11:28] LABS: HCT 27.6 % (34.0-46.0); HGB 9.1 gm/dL (11.4-16.0); MCH 29.9 pg (25.0-35.0); MCHC 32.9 g/dL (31.0-37.0); MCV 90.9 fL (80.0-100.0); Mean Platelet Volume 8.3; Platelet Count 225 k/uL (150-450); RBC 3.03 m/uL (3.80-5.40); RDW 14.2 % (11.5-15.5); WBC 6.6 k/uL (3.8-10.6)
[2023-09-27 11:43] LABS: African American GFR (CKD) >90 (>60 ml/min/1.73 sqM); Anion Gap 6 mmol/L; Blood Urea Nitrogen 6 mg/dL (7-17); Calcium 9.2 mg/dL (8.4-10.2); Carbon Dioxide 28 mmol/L (22-30); Chloride 106 mmol/L (98-107); Glucose 117 mg/dL (74-99); Non-African American GFR(CKD) 88 (>60 ml/min/1.73 sqM); Potassium 3.9 mmol/L (3.5-5.1); Sodium 140 mmol/L (137-145)
[2023-09-27] MEDS: METOPROLOL SUCCINATE (ER) 25 MG TAB.ER.24H PO SCH (11:52)
[2023-09-28] MEDS: SODIUM CHLORIDE 0.9% 1,000 ML IV SCH ×2 (02:22→18:07)
[2023-09-28] MEDS: PANTOPRAZOLE 40 MG TABLET PO SCH (11:14)
[2023-09-28] MEDS: ASCORBIC ACID 500 MG TAB PO SCH (11:14)
[2023-09-28] MEDS: CALCIUM CARBONATE 500 MG CHEWABLE PO SCH (11:14)
[2023-09-28] MEDS: amLODIPine 5 MG TAB PO SCH (11:14)
[2023-09-28] MEDS: FERROUS SULFATE 325 MG TAB PO SCH ×2 (11:14→18:06)
[2023-09-28] MEDS: METOPROLOL SUCCINATE (ER) 25 MG TAB.ER.24H PO SCH (11:15)
[2023-09-28] MEDS: CHLORTHALIDONE 25 MG TAB PO SCH (11:15)
[2023-09-28] MEDS: NIACIN TR 500 MG CAPLET PO SCH (11:15)
[2023-09-28] MEDS: ENOXAPARIN 40 MG/0.4 ML SYRINGE SQ SCH (11:15)
[2023-09-28] MEDS: CHOLECALCIFEROL 25 MCG (1000 IU) TABLET PO SCH (11:15)
[2023-09-28] MEDS: SODIUM FERRIC GLUCONAT-SUCROSE 125 MG in SODIUM CHLORIDE 0.9% 100 ML IVPB SCH (11:16)
[2023-09-28] MEDS: SODIUM CHLORIDE 5% OPHTH DROPS 15 ML BTL BOTH EYES SCH ×2 (11:16→20:45)
--- NOTE | 2023-09-28 11:18 | P.PN ---
Subjective Progress Note Date: 09/28/23 This is a 78 year-old female who is status post right total hip arthroplasty performed on 09/22/2023. Patient is admitted for syncope. Patient is seen and evaluated at bedside today. Patient states that her pain is well controlled and she denies any new complaints today. Patient states that she has not worked with physical therapy yet today, and she is considering ECF placement upon discharge. Objective - Vital Signs Vital signs: Vital Signs Temp 98.6 F 09/28/23 07:00 Pulse 73 09/28/23 10:34 Resp 16 09/28/23 07:00 BP 149/76 09/28/23 10:34 Pulse Ox 99 09/28/23 07:00 FiO2 21 09/27/23 09:19 Intake & Output 09/27/23 09/28/23 09/28/23 18:59 06:59 18:59 Other: Voiding Method Toilet Toilet # Voids 4 2 # Bowel Movements 0 - Exam Vital signs are stable. Patient is in no acute distress and is alert and oriented 3. Calf is soft and nontender to palpation. Dressing is clean, dry, and intact. Patient has full foot and ankle motion without pain or difficulty. Sensation intact. Neurovascular status and circulatory status are intact. - Labs CBC & Chem 7: 09/27/23 10:52 09/27/23 10:52 Labs: Abnormal Lab Results - Last 24 Hours (Table) 09/27/23 09/27/23 Range/Units 10:52 10:52 RBC 3.03 L (3.80-5.40) m/uL Hgb 9.1 L (11.4-16.0) gm/dL Hct 27.6 L (34.0-46.0) % BUN 6 L (7-17) mg/dL Glucose 117 H (74-99) mg/dL Assessment and Plan (1) S/P total hip arthroplasty Current Visit: Yes Status: Acute Code(s): Z96.649 - PRESENCE OF UNSPECIFIED ARTIFICIAL HIP JOINT SNOMED Code(s): 344446147906 (2) Osteoarthritis of right hip Current Visit: No Status: Acute Code(s): M16.11 - UNILATERAL PRIMARY OSTEOARTHRITIS, RIGHT HIP SNOMED Code(s): 912599360533679 Plan: Continue routine postop care and pain control. Continue anticoagulation per internal medicine. Weightbearing as tolerated with a walker. Leave dressing in place for 7 days. Appreciate input from internal medicine. Anticipate discharge to [facility] once cleared medically.
--- NOTE | 2023-09-28 11:48 | P.PN ---
Subjective Progress Note Date: 09/28/23 Hospital course: Patient is a pleasant 78-year-old female with a past medical history of hypertension, hyperlipidemia and orthostatic hypotension, and status post recent right total hip arthroplasty on 09/22/[address] Villarreal. She presented to the emergency department on 09/25/23 with a chief complaint of syncopal episode. She underwent full evaluation. Vital signs upon arrival show blood pressure 147/71, heart rate 79, respiratory rate 16, temp 97.8F, SpO2 of 98% on room air. EKG was completed showing sinus mechanism at 79 bpm with no significant T-wave or ST abnormalities showing no signs of acute ischemia. Chest x-ray was negative for acute cardiopulmonary process. CTA chest negative for pulmonary emboli. X-ray right hip also obtained showing satisfactory postoperative alignment. Patient was admitted under our services with consultation to orthopedic surgery. I nitially Orthostatic vitals negative for orthostatic hypotension but did reveal postural orthostatic tachycardia. Blood pressure lying 125/73 with heart rate of 87, sitting 152/77 with heart rate of 89, and standing blood pressure 153/77 with heart rate of 116. Today orthostatic vitals are positive for orthostatic hypotension and orthostatic tachycardia with blood pressure supine 149/76 with heart rate of 73, sitting blood pressure 165/76 with heart rate of 103, and standing blood pressure 138/74 with heart rate of 127. Physical exam: Patient seen and fully evaluated at the bedside this morning. She reports continued dizziness/lightheadedness upon standing but currently denies having an y pains or complaints at rest. Awaiting evaluation by physical therapy to determine discharge plans. Vital signs reviewed and stable. General: Nontoxic, no distress and appears stated age. Derm: Skin warm and dry, normal coloration for ethnicity. Head: Atraumatic, normocephalic and symmetric. Eyes: EOMs intact, no lid lag, and anicteric sclera Mouth: no lip lesions, mucus membranes moist Cardiovascular: regular rate and rhythm with normal S1S2, no murmur, positive posterior tibial pulses bilaterally, and cap refill < 2 seconds. Lungs: Respirations even, regular, and unlabored on room air. Lungs CTA bilaterally, no rhonchi, no rales, no wheezing, and no accessory muscle usage. Abdominal: soft, nontender to palpation, no guarding, no appreciable organomegaly Ext: ROM intact. No gross muscle atrophy, no edema, no contractures Neuro: Speech clear, face symmetrical and CN II-XII grossly intact with no noted focal neuro deficits Psych: Alert and oriented to person, place, time, and situation. Appropriate and pleasant affect. Assessment and Plan of Care: Patient has an acute diagnosis of syncope that poses a threat to life or bodily function. Syncope: -Multifactorial. Positive orthostatic hypotension and tachycardia.. -Repeated orthostatic vitals this morning and were positive as stated above in HPI. -Metoprolol was decreased to 12.5 mg daily. -Hemoglobin remained stable at 9.1. -Echocardiogram was completed and pending results. -PT/OT consulted. -Case management consulted for possible placement. Nausea: -Continue symptomatic care as needed with Zofran 4 mg IV Q6H ordered. Tums 500 mg PO QD and patient was started on Protonix 40 mg PO daily. Recent right total hip arthroplasty completed 09/22/22 -Symptomatic care and pain management. Patient is on Lovenox for DVT prophylaxis. Hypertension: Isolated systolic. Continue Metoprolol 12.5 mg PO daily, Chl orthalidone 25 mg PO daily, and Amlopidine to 5 mg PO daily. Add ACEi if need better BP control. Acute blood loss anemia: -Acute blood loss anemia secondary to recent surgical procedure. -Iron studies also indicate iron deficiency anemia with iron of 11, TIBC of 256, iron percent saturation 4.30, and transferrin of 183.. -Continue ferric gluconate 125 mg IV daily day 2/3 and then patient may resume ferrous sulfate 325 mg PO BID. Leukocytosis: Resolved. Possibly reactive. No signs of active infection. Elevated D-Dimer: CTA chest ruled out PE. CODE STATUS: FULL CODE. DVT Prophylaxis: Lovenox SQ GI Prophylaxis: Protonix PO Anticipated discharge date: Likely within the next [address]: Home with home care versus rehab pending PT/OT recommendations. Patient was seen independently by Nurse Pracitioner. This document was prepared using [employer] dictation software. Please allow for errors in weigher and crusher, while rare they do occur. I reviewed the documentation as provided by the FRANCES above, who is the original author of this note. I agree with the documented assessment and plan, with the following changes: none Objective - Vital Signs Vital signs: Vital Signs Temp 98.6 F 01/22/24 07:00 Pulse 103 H 09/28/23 07:00 Resp 16 09/28/23 07:00 BP 129/71 09/28/23 08:00 Pulse Ox 99 09/28/23 07:00 FiO2 21 09/27/23 09:19 Intake & Output 09/27/23 09/28/23 09/28/23 18:59 06:59 18:59 Other: Voiding Method Toilet Toilet # Voids 4 2 # Bowel Movements 0 - Labs CBC & Chem 7: 09/27/23 10:52 09/27/23 10:52 Labs: Abnormal Lab Results - Last 24 Hours (Table) 09/26/23 09/27/23 09/27/23 Range/Units 05:57 10:52 10:52 RBC 3.03 L (3.80-5.40) m/uL Hgb 9.1 L (11.4-16.0) gm/dL Hct 27.6 L (34.0-46.0) % BUN 6 L (7-17) mg/dL Glucose 117 H (74-99) mg/dL Iron 11 L (50-170) UG/DL % Saturation 4.30 L (12.00-45.00) Transferrin 183.0 L (204.0-354.0) mg/dL
--- NOTE | 2023-09-28 12:05 | CA ---
Transthoracic Echo Report Name: Katlyn Vera Age: 78 Gender: F : 1945 Exam Date: 09/28/2023 07:50 Exam Location: [facility] Ht (in): 63 Wt (lb): 152 Ordering Physician: Bryan Sloan MD Attending/Referring Phys: Radio Repair Teacher Cierra Yeung RDCS Procedure CPT: Indications: Syncope Cardiac Hx: Technical Quality: Fair Contrast 1: Total Dose (mL): Contrast 2: Total Dose (mL): MEASUREMENTS (Male / Female) Normal Values 2D ECHO LV Diastolic Diameter PLAX 4.4 cm 4.2 - 5.9 / 3.9 - 5.3 cm LV Systolic Diameter PLAX 3.1 cm IVS Diastolic Thickness 1.2 cm 0.6 - 1.0 / 0.6 - 0.9 cm LVPW Diastolic Thickness 1.2 cm 0.6 - 1.0 / 0.6 - 0.9 cm LV Relative Wall Thickness 0.5 RV Internal Dim ED PLAX 2.9 cm LA Systolic Diameter LX 3.6 cm 3.0 - 4.0 / 2.7 - 3.8 cm LV Diastolic Volume MOD BP 71.7 cm??? 67 - 155 / 56 - 104 cm??? LV Systolic Volume MOD BP 29.1 cm??? 22 - 58 / 19 - 49 cm??? LV Ejection Fraction MOD BP 59.5 % >= 55 % LV Cardiac Index MOD BP 2099.6 cm???/min???m??? LV Diastolic Volume MOD 4C 60.9 cm??? LV Systolic Volume MOD 4C 24.5 cm??? LV Ejection Fraction MOD 4C 59.7 % LV Cardiac Index MOD 4C 1790.5 cm???/min???m??? LV Diastolic Length 4C 7.7 cm LV Systolic Length 4C 6.4 cm LV Diastolic Volume MOD 2C 79.5 cm??? LV Systolic Volume MOD 2C 32.5 cm??? LV Ejection Fraction MOD 2C 59.1 % LV Cardiac Index MOD 2C 2311.3 cm???/min???m??? LV Diastolic Length 2C 7.2 cm LV Systolic Length 2C 6.0 cm LA Volume 56.7 cm??? 18 - 58 / 22 - 52 cm??? LA Volume Index 32.1 cm???/m??? 16 - 28 cm???/m??? M-MODE Aortic Root Diameter MM 2.7 cm MV E Point Septal Separation 1.0 cm AV Cusp Separation MM 1.9 cm DOPPLER AV Peak Velocity 194.5 cm/s AV Peak Gradient 15.1 mmHg AV Mean Velocity 128.1 cm/s AV Mean Gradient 7.4 mmHg AV Velocity Time Integral 34.6 cm MV Area PHT 4.5 cm??? Mitral E Point Velocity 88.1 cm/s Mitral A Point Velocity 128.2 cm/s Mitral E to A Ratio 0.7 MV Deceleration Time 169.7 ms MV E' Velocity 9.3 cm/s Mitral E to MV E' Ratio 9.5 FINDINGS Left Ventricle Left ventricular ejection fraction is estimated at 55-60 %. Left ventricular cavity size normal. Mildly increased septal wall thickness. Mildly increased posterior wall thickness. Right Ventricle Normal right ventricular size. Unable to estimate the right ventricular systolic pressure. Right Atrium Normal right atrial size. Left Atrium Mildly increased left atrial volume. Mitral Valve Structurally normal mitral valve. Trace mitral regurgitation. Aortic Valve Cannot rule out bicuspid aortic valve. No aortic valve stenosis or regurgitation. Tricuspid Valve Structurally normal tricuspid valve. Trace tricuspid regurgitation. Pulmonic Valve Pulmonic valve not well visualized. No pulmonic regurgitation. Pericardium No pericardial effusion. Aorta Normal size aortic root and proximal ascending aorta. CONCLUSIONS Normal LV systolic function Cannot rule out bicuspid aortic valve. No aortic stenosis or regurgitation No pericardial effusion Previewed by: Dr. Jose E Hammer MD (Electronically Signed) Final Date: 28 September 2023 12:04
[2023-09-28] MEDS ORDERED: ACETAMINOPHEN TAB 325 MG TAB PO STA (22:32)
[2023-09-29] MEDS: SODIUM CHLORIDE 0.9% 1,000 ML IV SCH (05:06)
[2023-09-29] MEDS: SODIUM FERRIC GLUCONAT-SUCROSE 125 MG in SODIUM CHLORIDE 0.9% 100 ML IVPB SCH (11:15)
[2023-09-29] MEDS: CHOLECALCIFEROL 25 MCG (1000 IU) TABLET PO SCH (11:16)
[2023-09-29] MEDS: PANTOPRAZOLE 40 MG TABLET PO SCH (11:16)
[2023-09-29] MEDS: NIACIN TR 500 MG CAPLET PO SCH (11:16)
[2023-09-29] MEDS: ASCORBIC ACID 500 MG TAB PO SCH (11:17)
[2023-09-29] MEDS: METOPROLOL SUCCINATE (ER) 25 MG TAB.ER.24H PO SCH (11:17)
[2023-09-29] MEDS: CALCIUM CARBONATE 500 MG CHEWABLE PO SCH (11:17)
[2023-09-29] MEDS: amLODIPine 5 MG TAB PO SCH (11:18)
[2023-09-29] MEDS: SODIUM CHLORIDE 5% OPHTH DROPS 15 ML BTL BOTH EYES SCH ×2 (11:18→20:49)
[2023-09-29] MEDS: CHLORTHALIDONE 25 MG TAB PO SCH (11:18)
[2023-09-29] MEDS: FERROUS SULFATE 325 MG TAB PO SCH ×2 (11:18→18:58)
[2023-09-29] MEDS: ENOXAPARIN 40 MG/0.4 ML SYRINGE SQ SCH (11:37)
--- NOTE | 2023-09-29 13:22 | P.PN ---
Subjective Progress Note Date: 09/29/23 This is a 78 year-old female who is status post right total hip arthroplasty performed on 09/22/2023. Patient is admitted for syncope. Patient is seen and evaluated at bedside today. Patient states that her pain is well controlled and she denies any new complaints today. Objective - Vital Signs Vital signs: Vital Signs Temp 97.9 F 09/29/23 07:00 Pulse 82 09/29/23 07:00 Resp 16 09/29/23 07:00 BP 130/55 09/29/23 07:00 Pulse Ox 97 09/29/23 07:00 FiO2 21 09/27/23 09:19 Intake & Output 09/28/23 09/29/23 09/29/23 18:59 06:59 18:59 Intake Total 220 240 Balance 220 240 Intake: Oral 220 240 Other: Voiding Method Toilet Toilet # Voids 2 3 - Exam Vital signs are stable. Patient is in no acute distress and is alert and oriented 3. Calf is soft and nontender to palpation. Dressing is clean, dry, and intact. Patient has full foot and ankle motion without pain or difficulty. Sensation intact. Neurovascular status and circulatory status are intact. - Labs CBC & Chem 7: 09/27/23 10:52 09/27/23 10:52 Assessment and Plan (1) S/P total hip arthroplasty Current Visit: Yes Status: Acute Code(s): Z96.649 - PRESENCE OF UNSPECIFIED ARTIFICIAL HIP JOINT SNOMED Code(s): 064369635082 (2) Osteoarthritis of right hip Current Visit: No Status: Acute Code(s): M16.11 - UNILATERAL PRIMARY OSTEOARTHRITIS, RIGHT HIP SNOMED Code(s): 619715516279600 Plan: Continue routine postop care and pain control. Continue anticoagulation per internal medicine. Weightbearing as tolerated with a walker. Daily dressing changes. Appreciate input from internal medicine. Anticipate discharge to [facility] once cleared medically.
--- NOTE | 2023-09-29 14:20 | P.PN ---
Subjective Progress Note Date: 09/29/23 Hospital course: Patient is a pleasant 78-year-old female with a past medical history of hypertension, hyperlipidemia and orthostatic hypotension, and status post recent right total hip arthroplasty on 09/22/[address] Villarreal. She presented to the emergency department on 09/25/23 with a chief complaint of syncopal episode. She underwent full evaluation. Vital signs upon arrival show blood pressure 147/71, heart rate 79, respiratory rate 16, temp 97.8F, SpO2 of 98% on room air. EKG was completed showing sinus mechanism at 79 bpm with no significant T-wave or ST abnormalities showing no signs of acute ischemia. Chest x-ray was negative for acute cardiopulmonary process. CTA chest negative for pulmonary emboli. X-ray right hip also obtained showing satisfactory postoperative alignment. Patient was admitted under our services with consultation to orthopedic surgery. Initially Orthostatic vitals negative for orthostatic hypotension but did reveal postural orthostatic tachycardia. Blood pressure lying 125/73 with heart rate of 87, sitting 152/77 with heart rate of 89, and standing blood pressure 153/77 with heart rate of 116. On 09/28/2023 orthostatic vitals are positive for orthostatic hypotension and orthostatic tachycardia with blood pressure supine 149/76 with heart rate of 73, sitting blood pressure 165/76 with heart rate of 103, and standing blood pressure 138/74 with heart rate of 127. Physical exam: Patient seen and fully evaluated at the bedside this morning. She denies having any pains or complaints at this time. Vital signs reviewed and stable. General: Nontoxic, no distress and appears stated age. Derm: Skin warm and dry, normal coloration for ethnicity. Head: Atraumatic, normocephalic and symmetric. Eyes: EOMs intact, no lid lag, and anicteric sclera Mouth: no lip lesions, mucus membranes moist Cardiovascular: regular rate and rhythm with normal S1S2, no murmur, positive posterior tibial pulses bilaterally, and cap refill < 2 seconds. Lungs: Respirations even, regular, and unlabored on room air. Lungs CTA bilaterally, no rhonchi, no rales, no wheezing, and no accessory muscle usage. Abdominal: soft, nontender to palpation, no guarding, no appreciable organomegaly Ext: ROM intact. No gross muscle atrophy, no edema, no contractures Neuro: Speech clear, face symmetrical and CN II-XII grossly intact with no noted focal neuro deficits Psych: Alert and oriented to person, place, time, and situation. Appropriate and pleasant affect. Assessment and Plan of Care: Syncope: -Multifactorial. Positive orthostatic hypotension and tachycardia.. -Repeated orthostatic vitals this morning and were positive as stated above in HPI. -Metoprolol was decreased to 12.5 mg daily. -Hemoglobin remained stable at 9.1. -Echocardiogram was completed and pending results. -PT/OT consulted. -Case management consulted for possible placement. Nausea: -Continue symptomatic care as needed with Zofran 4 mg IV Q6H ordered. Tums 500 mg PO QD and patient was started on Protonix 40 mg PO daily. Recent right total hip arthroplasty completed 09/22/22 -Symptomatic care and pain management. Patient is on Lovenox for DVT prophylaxis. Hypertension: Isolated systolic. Continue Metoprolol 12.5 mg PO daily, Chlorthalidone 25 mg PO daily, and Amlopidine to 5 mg PO daily. Add ACEi if need better BP control. Acute blood loss anemia: -Acute blood loss anemia secondary to recent surgical procedure. -Iron studies also indicate iron deficiency anemia with iron of 11, TIBC of 256, iron percent saturation 4.30, and transferrin of 183.. -Continue ferric gluconate 125 mg IV daily day 2/3 and then patient may resume ferrous sulfate 325 mg PO BID. Leukocytosis: Resolved. Possibly reactive. No signs of active infection. Elevated D-Dimer: CTA chest ruled out PE. Data reviewed: Vital signs reviewed and stable. Blood pressure 130/55, heart rate 82, respir atory rate 16, temp 97.9 F, SpO2 of 97% on room air. CODE STATUS: FULL CODE. DVT Prophylaxis: Lovenox SQ GI Prophylaxis: Protonix PO Anticipated discharge date: Per insurance authorization patient may be discharged on , 10/01/2022 to rehab [address]ticipated discharge place: [facility] Patient was seen independently by Nurse Pracitioner. This document was prepared using [employer] dictation software. Please allow for errors in rf manager, while rare they do occur. Objective - Vital Signs Vital signs: Vital Signs Temp 97.9 F 09/29/23 07:00 Pulse 82 09/29/23 07:00 Resp 16 09/29/23 07:00 BP 130/55 09/29/23 07:00 Pulse Ox 97 01/23/24 07:00 FiO2 21 09/27/23 09:19 Intake & Output 09/28/23 09/29/23 09/29/23 18:59 06:59 18:59 Intake Total 220 Balance 220 Intake: Oral 220 Other: Voiding Method Toilet Toilet # Voids 2 3 - Labs CBC & Chem 7: 09/27/23 10:52 09/27/23 10:52
[2023-09-29] MEDS ORDERED: ACETAMINOPHEN TAB 325 MG TAB PO STA (23:40)
[2023-09-30] MEDS: SODIUM FERRIC GLUCONAT-SUCROSE 125 MG in SODIUM CHLORIDE 0.9% 100 ML IVPB SCH (10:42)
[2023-09-30] MEDS: ASCORBIC ACID 500 MG TAB PO SCH (10:43)
[2023-09-30] MEDS: CHLORTHALIDONE 25 MG TAB PO SCH (10:43)
[2023-09-30] MEDS: METOPROLOL SUCCINATE (ER) 25 MG TAB.ER.24H PO SCH (10:43)
[2023-09-30] MEDS: FERROUS SULFATE 325 MG TAB PO SCH ×2 (10:43→18:54)
[2023-09-30] MEDS: NIACIN TR 500 MG CAPLET PO SCH (10:43)
[2023-09-30] MEDS: CHOLECALCIFEROL 25 MCG (1000 IU) TABLET PO SCH (10:43)
[2023-09-30] MEDS: SODIUM CHLORIDE 5% OPHTH DROPS 15 ML BTL BOTH EYES SCH ×2 (10:44→20:51)
[2023-09-30] MEDS: PANTOPRAZOLE 40 MG TABLET PO SCH (10:44)
[2023-09-30] MEDS: CALCIUM CARBONATE 500 MG CHEWABLE PO SCH (10:44)
[2023-09-30] MEDS: ENOXAPARIN 40 MG/0.4 ML SYRINGE SQ SCH (10:44)
[2023-09-30] MEDS: amLODIPine 5 MG TAB PO SCH (10:44)
[2023-09-30 11:03] LABS: HCT 26.9 % (37.2-46.3); HGB 8.4 g/dL (12.0-15.0); MCH 28.8 pg (27.0-32.0); MCHC 31.2 g/dL (32.0-37.0); MCV 92.1 FL (80.0-97.0); Mean Platelet Volume 10.3 FL (9.5-12.2); NRBC Per 100 WBC 0 X 10*3/uL (0.00-0.01); Platelet Count 294 X 10*3/uL (140-440); RBC 2.92 X 10*6/uL (4.10-5.20); RDW 13.7 % (11.5-14.5); WBC 7.79 X 10*3/uL (4.50-10.00)
[2023-09-30 11:24] LABS: ALT 12 U/L (8-44); AST 16 U/L (13-35); Albumin 3.7 g/dL (3.8-4.9); Albumin/Globulin Ratio 1.95 Ratio (1.60-3.17); Alkaline Phosphatase 95 U/L (41-126); Blood Urea Nitrogen 4.8 mg/dL (9.0-27.0); Calcium 9.8 mg/dL (8.7-10.3); Carbon Dioxide 30.3 mmol/L (21.6-31.8); Chloride 102 mmol/L (96-109); Globulin 1.9 g/dL (1.6-3.3); Glucose 107 mg/dL (70-110); Magnesium 1.8 mg/dL (1.5-2.4); Potassium 3.7 mmol/L (3.5-5.5); Sodium 143 mmol/L (135-145); Total Bilirubin 0.6 mg/dL (0.3-1.2); Total Protein 5.6 g/dL (6.2-8.2)
--- NOTE | 2023-09-30 11:58 | P.PN ---
Subjective Progress Note Date: 09/30/23 This is a 78 year-old female who is status post right total hip arthroplasty performed on 09/22/2023. Patient is admitted for syncope. Patient is seen and evaluated at bedside today. Patient states that her pain is well controlled and she denies any new complaints today. Patient states that she has been able to work with physical therapy without any symptoms of syncope. Objective - Vital Signs Vital signs: Vital Signs Temp 97.7 F 09/30/23 08:00 Pulse 69 09/30/23 08:00 Resp 22 09/30/23 08:00 BP 118/64 09/30/23 08:00 Pulse Ox 97 09/30/23 08:00 FiO2 21 09/27/23 09:19 Intake & Output 09/29/23 09/30/23 09/30/23 18:59 06:59 18:59 Intake Total 358 Balance 358 Intake: Oral 358 Other: Voiding Method Toilet # Voids 2 4 - Exam Vital signs are stable. Patient is in no acute distress and is alert and o riented 3. Calf is soft and nontender to palpation. Dressing is clean, dry, and intact. Patient has full foot and ankle motion without pain or difficulty. Sensation intact. Neurovascular status and circulatory status are intact. - Labs CBC & Chem 7: 09/30/23 05:53 09/30/23 05:53 Labs: Abnormal Lab Results - Last 24 Hours (Table) 09/30/23 09/30/23 Range/Units 05:53 05:53 RBC 2.92 L (4.10-5.20) X 10*6/uL Hgb 8.4 L (12.0-15.0) g/dL Hct 26.9 L (37.2-46.3) % MCHC 31.2 L (32.0-37.0) g/dL BUN 4.8 L (9.0-27.0) mg/dL BUN/Creatinine Ratio 6.00 L (12.00-20.00) Ratio Total Protein 5.6 L (6.2-8.2) g/dL Albumin 3.7 L (3.8-4.9) g/dL Assessment and Plan (1) S/P total hip arthroplasty Current Visit: Yes Status: Acute Code(s): Z96.649 - PRESENCE OF UNSPECIFIED ARTIFICIAL HIP JOINT SNOMED Code(s): 701924235237 (2) Osteoarthritis of right hip Current Visit: No Status: Acute Code(s): M16.11 - UNILATERAL PRIMARY OSTEOARTHRITIS, RIGHT HIP SNOMED Code(s): 587366986887670 Plan: Continue routine postop care and pain control. Continue anticoagulation per internal medicine. Weightbearing as tolerated with a walker. Daily dressing changes. Appreciate input from internal medicine. Anticipate discharge to [facility] once cleared medically.
--- NOTE | 2023-09-30 13:42 | P.PN ---
Subjective Progress Note Date: 09/30/23 Hospital course: Patient is a pleasant 78-year-old female with a past medical history of hypertension, hyperlipidemia and orthostatic hypotension, and status post recent right total hip arthroplasty on 09/22/[address] Villarreal. She presented to the emergency department on 09/25/23 with a chief complaint of syncopal episode. She underwent full evaluation. Vital signs upon arrival show blood pressure 147/71, heart rate 79, respiratory rate 16, temp 97.8F, SpO2 of 98% on room air. EKG was completed showing sinus mechanism at 79 bpm with no significant T-wave or ST abnormalities showing no signs of acute ischemia. Chest x-ray was negative for acute cardiopulmonary process. CTA chest negative for pulmonary emboli. X-ray right hip also obtained showing satisfactory postoperative alignment. Patient was admitted under our services with consultation to orthopedic surgery. Initially Orthostatic vitals negative for orthostatic hypotension but did reveal postural orthostatic tachycardia. Blood pressure lying 125/73 with heart rate of 87, sitting 152/77 with heart rate of 89, and standing blood pressure 153/77 with heart rate of 116. On 09/28/2023 orthostatic vitals are positive for orthostatic hypotension and orthostatic tachycardia with blood pressure supine 149/76 with heart rate of 73, sitting blood pressure 165/76 with heart rate of 103, and standing blood pressure 138/74 with heart rate of 127. Patient currently awaiting insurance authorization with plans to discharge to [facility] on 10/01/2023 after required 3 night inpatient hospitalization. Physical exam: Patient seen and fully evaluated at the bedside this morning. She denies having any needs, concerns, pain or complaints at this time. Vital signs reviewed and stable. General: Nontoxic, no distress and appears stated age. Derm: Skin warm and dry, normal coloration for ethnicity. Head: Atraumatic, normocephalic and symmetric. Eyes: EOMs intact, no lid lag, and anicteric sclera Mouth: no lip lesions, mucus membranes moist Cardiovascular: regular rate and rhythm with normal S1S2, no murmur, positive posterior tibial pulses bilaterally, and cap refill < 2 seconds. Lungs: Respirations even, regular, and unlabored on room air. Lungs CTA bilaterally, no rhonchi, no rales, no wheezing, and no accessory muscle usage. Abdominal: soft, nontender to palpation, no guarding, no appreciable organomegaly Ext: ROM intact. No gross muscle atrophy, no edema, no contractures Neuro: Speech clear, face symmetrical and CN II-XII grossly intact with no noted focal neuro deficits Psych: Alert and oriented to person, place, time, and situation. Appropriate and pleasant affect. Assessment and Plan of Care: Syncope: -Multifactorial. Positive orthostatic hypotension and tachycardia.. -Repeated orthostatic vitals this morning and were positive as stated above in HPI. -Metoprolol was decreased to 12.5 mg daily. -Hemoglobin remained stable at 9.1. -Echocardiogram was completed and pending results. -PT/OT consulted. -Case management consulted for possible placement. Nausea: -Continue symptomatic care as needed with Zofran 4 mg IV Q6H ordered. Tums 500 mg PO QD and patient was started on Protonix 40 mg PO daily. Recent right total hip arthroplasty completed 09/22/22 -Symptomatic care and pain management. Patient is on Lovenox for DVT prophylaxis. Hypertension: Isolated systolic. -Stable on current medication regimen with current blood pressure 118/64 and heart rate 69. Continue Metoprolol 12.5 mg PO daily, Chlorthalidone 25 mg PO daily, and Amlopidine to 5 mg PO daily. Acute blood loss anemia: -Acute blood loss anemia secondary to recent surgical procedure. -Iron studies also indicate iron deficiency anemia with iron of 11, TIBC of 256, iron percent saturation 4.30, and transferrin of 183.. -Completed 3-day course of IV ferric gluconate and resumed ferrous sulfate 325 mg PO BID. Leukocytosis: Resolved. -Believed to be reactive. No signs of active infection. Elevated D-Dimer: CTA chest ruled out PE. Data reviewed: Vital signs reviewed and stable. Blood pressure 118/64, heart rate 69, respiratory rate 20, temp 97.7 F, and SpO2 of 97% on room air.. Labs completed and reviewed. CBC showing stable but persistent normocytic anemia with hemoglobin of 8.4. BMP unremarkable. Magnesium 1.8. And liver profile normal findings. CODE STATUS: FULL CODE. DVT Prophylaxis: Lovenox SQ GI Prophylaxis: Protonix PO Anticipated discharge date: Per insurance authorization patient may be discharged on , 10/01/2022 to rehab [address]ticipated discharge place: [facility] Patient was seen independently by Nurse Pracitioner. This document was prepared using [employer] dictation software. Please allow for errors in community sports coordinator, while rare they do occur. Musa García ANALYTICS MANAGER rendered care for this patient independently, reviewed the findings and plan as documented in the note above. I did not physically speak with or examine the patient on this date. Objective - Vital Signs Vital signs: Vital Signs Temp 97.7 F 09/30/23 08:00 Pulse 69 09/30/23 08:00 Resp 22 09/30/23 08:00 BP 118/64 09/30/23 08:00 Pulse Ox 97 09/30/23 08:00 FiO2 21 09/27/23 09:19 Intake & Output 09/29/23 09/30/23 09/30/23 18:59 06:59 18:59 Intake Total 358 Balance 358 Intake: Oral 358 Other: Voiding Method Toilet # Voids 2 4 - Labs CBC & Chem 7: 09/30/23 05:53 09/30/23 05:53
[2023-10-01 02:47] VITALS: TEMP 98.2
[2023-10-01 07:29] VITALS: BP 111/62; PULSE 84; RESP 18
[2023-10-01] MEDS: amLODIPine 5 MG TAB PO SCH (08:11)
[2023-10-01] MEDS: PANTOPRAZOLE 40 MG TABLET PO SCH (08:11)
[2023-10-01] MEDS: CALCIUM CARBONATE 500 MG CHEWABLE PO SCH (08:11)
[2023-10-01] MEDS: NIACIN TR 500 MG CAPLET PO SCH (08:11)
[2023-10-01] MEDS: ASCORBIC ACID 500 MG TAB PO SCH (08:11)
[2023-10-01] MEDS: ENOXAPARIN 40 MG/0.4 ML SYRINGE SQ SCH (08:11)
[2023-10-01] MEDS: CHLORTHALIDONE 25 MG TAB PO SCH (08:11)
[2023-10-01] MEDS: CHOLECALCIFEROL 25 MCG (1000 IU) TABLET PO SCH (08:11)
[2023-10-01] MEDS: METOPROLOL SUCCINATE (ER) 25 MG TAB.ER.24H PO SCH (08:11)
[2023-10-01] MEDS: FERROUS SULFATE 325 MG TAB PO SCH (08:11)
[2023-10-01] MEDS: SODIUM CHLORIDE 5% OPHTH DROPS 15 ML BTL BOTH EYES SCH (08:15)
--- NOTE | 2023-10-01 09:25 | P.DS ---
Providers Date of admission: 09/28/23 13:33 Expected date of discharge: 10/01/23 Attending physician: Bryan Sloan MD Consults: 09/25/23 18:53 Consult Physician Urgent Consulting Provider: Santos Villarreal Consult Reason/Comments: s/p hip replacement Do you want consulting provider notified?: Yes [facility] Course: Discharge Diagnosis: Syncope: Multifactorial. Positive orthostatic hypotension and tachycardia.. Nausea: Continue symptomatic care as needed with Tums 500 mg PO QD and patient was started on Protonix 40 mg PO daily. Recent right total hip arthroplasty completed 09/22/22. Continue Aspirin 325 mg BID until 10/21/23 then discontine. -Symptomatic care and pain management. Patient is on Lovenox for DVT prophylaxis. Hypertension: Isolated systolic. Continue Metoprolol 12.5 mg PO daily, Chlorthalidone 25 mg PO daily, and Amlopidine to 5 mg PO daily. Acute blood loss anemia: -Acute blood loss anemia secondary to recent surgical procedure. -Iron studies also indicate iron deficiency anemia with iron of 11, TIBC of 256, iron percent saturation 4.30, and transferrin of 183.. -Completed 3-day course of IV ferric gluconate and resumed ferrous sulfate 325 mg PO BID. Leukocytosis: Resolved. -Believed to be reactive. No signs of active infection. Elevated D-Dimer: CTA chest ruled out PE. Hospital Course: Patient is a pleasant 78-year-old female with a past medical history of hypertension, hyperlipidemia and orthostatic hypotension, and status post recent right total hip arthroplasty on 09/22/[address] Villarreal. She presented to the emergency department on 09/25/23 with a chief complaint of syncopal episode. She underwent full evaluation. Vital signs upon arrival show blood pressure 147/71, heart rate 79, respiratory rate 16, temp 97.8F, SpO2 of 98% on room air. EKG was completed showing sinus mechanism at 79 bpm with no significant T-wave or ST abnormalities showing no signs of acute ischemia. Chest x-ray was negative for acute cardiopulmonary process. CTA chest negative for pulmonary emboli. X-ray right hip also obtained showing satisfactory postoperative alignment. Patient was admitted under our services with consultation to orthopedic surgery. Initially Orthostatic vitals negative for orthostatic hypotension but did reveal postural orthostatic tachycardia. Blood pressure lying 125/73 with heart rate of 87, sitting 152/77 with heart rate of 89, and standing blood pressure 153/77 with heart rate of 116. On 09/28/2023 orthostatic vitals are positive for orthostatic hypotension and orthostatic tachycardia with blood pressure supine 149/76 with heart rate of 73, sitting blood pressure 165/76 with heart rate of 103, and standing blood pressure 138/74 with heart rate of 127. Patient currently awaiting insurance authorization with plans to discharge to [facility] on 10/01/2023 after required 3 night inpatient hospitalization. Pt has been accepted to [facility] and is stable for discharge at this time. Physical exam: Vital signs reviewed and stable. General: Nontoxic, no distress and appears stated age. Derm: Skin warm and dry, normal coloration for ethnicity. Head: Atraumatic, normocephalic and symmetric. Eyes: EOMs intact, no lid lag, and anicteric sclera Mouth: no lip lesions, mucus membranes moist Cardiovascular: regular rate and rhythm with normal S1S2, no murmur, positive posterior tibial pulses bilaterally, and cap refill < 2 seconds. Lungs: Respirations even, regular, and unlabored on room air. Lungs CTA bilaterally, no rhonchi, no rales, no wheezing, and no accessory muscle usage. Abdominal: soft, nontender to palpation, no guarding, no appreciable organomegaly Ext: ROM intact. No gross muscle atrophy, no edema, no contractures Neuro: Speech clear, face symmetrical and CN II-XII grossly intact with no noted focal neuro deficits Psych: Alert and oriented to person, place, time, and situation. Appropriate and pleasant affect. A total of 34 minutes of time were spent preparing this complex discharge summary. Pt was discharged on 10/01/23 at 9:54 AM Patient was seen independently by Nurse Practitioner. This document was prepared using [employer] dictation software. Please allow for errors in poured pipe maker while rare they do occur. Assessment and Plan of Care: Musa García NP rendered care for this patient independently, reviewed the findings and plan as documented in the note above. I did not physically speak with or examine the patient on this date. Patient Condition at Discharge: Stable Plan - Discharge Summary Discharge Rx Participant: Yes New Discharge Prescriptions: New Ferrous Sulfate [Iron (65 MG Elemental)] 325 mg PO BID-W/MEALS #0 tab amLODIPine [Norvasc] 5 mg PO DAILY tab Pantoprazole [Protonix] 40 mg PO AC-BRKFST tab Hydrocortisone Cream [Hydrocortisone 1% Cream] 1 applic TOPICAL BID PRN each PRN Reason: Skin Irritation Chlorthalidone [Hygroton] 25 mg PO DAILY tab HYDROcodone/APAP 5-325MG [[place] 5-325] 1 each PO Q4HR PRN #12 tab PRN Reason: Moderate Pain (Scale 4 To 6) Metoprolol Succinate (ER) [Toprol XL] 12.5 mg PO DAILY tab polyethylene glycoL 3350 [Miralax] 17 gm PO DAILY packet Continue Cholecalciferol [Vitamin D3 (25 Mcg = 1000 Iu)] 50 mcg PO DAILY Beulah-3/Dha/Epa/Fish Oil [Fish Oil 1,000 mg Softgel] 2 cap PO DAILY Sennosides [Senokot] 2 tab PO DAILY PRN #60 tablet PRN Reason: Constipation Sodium Chloride 5% Ophth Soln [Trish 128] 1 drop BOTH EYES BID Potassium Citrate 99 mg PO DAILY Niacin 500 mg PO DAILY Calcium Carbonate [Calcium] 600 mg PO DAILY Ascorbic Acid [Vitamin C] 500 mg PO DAILY Aspirin 325 mg PO BID #60 tab Discontinued Metoprolol Succinate (ER) [Toprol Xl] 100 mg PO HS HYDROcodone/APAP 5-325MG [[place] 5-325] 1 - 2 tab PO Q6HR PRN #32 tab PRN Reason: Pain Discharge Medication List Ascorbic Acid [Vitamin C] 500 mg PO DAILY 09/17/23 [History] Calcium Carbonate [Calcium] 600 mg PO DAILY 09/17/23 [History] Cholecalciferol [Vitamin D3 (25 Mcg = 1000 Iu)] 50 mcg PO DAILY 09/17/23 [History] Niacin 500 mg PO DAILY 09/17/23 [History] Beulah-3/Dha/Epa/Fish Oil [Fish Oil 1,000 mg Softgel] 2 cap PO DAILY 09/17/23 [History] Potassium Citrate 99 mg PO DAILY 09/17/23 [History] Sodium Chloride 5% Ophth Soln [Trish 128] 1 drop BOTH EYES BID 09/17/23 [History] Aspirin 325 mg PO BID #60 tab 09/22/23 [Rx] Sennosides [Senokot] 2 tab PO DAILY PRN #60 tablet 09/22/23 [Rx] Chlorthalidone [Hygroton] 25 mg PO DAILY tab 10/01/23 [Rx] Ferrous Sulfate [Iron (65 MG Elemental)] 325 mg PO BID-W/MEALS #0 tab 10/01/23 [Rx] HYDROcodone/APAP 5-325MG [[place] 5-325] 1 each PO Q4HR PRN #12 tab 10/01/23 [Rx] Hydrocortisone Cream [Hydrocortisone 1% Cream] 1 applic TOPICAL BID PRN each 10/01/23 [Rx] Metoprolol Succinate (ER) [Toprol XL] 12.5 mg PO DAILY tab 10/01/23 [Rx] Pantoprazole [Protonix] 40 mg PO AC-BRKFST tab 10/01/23 [Rx] amLODIPine [Norvasc] 5 mg PO DAILY tab 10/01/23 [Rx] polyethylene glycoL 3350 [Miralax] 17 gm PO DAILY packet 10/01/23 [Rx] Follow up Appointment(s)/Referral(s): Santos Villarreal DO [Doctor of Osteopathic Medicine] - 2 Weeks (Patient may follow-up with Dr. Santos Villarreal at [facility] in 2-3 weeks following discharge. ) Santos Daly DO [Primary Care Provider] - 1-2 days Activity/Diet/Wound Care/Special Instructions: Activity: As tolerated. Take breaks as needed. Diet: Heart healthy and carb consistent diet. Avoid salts, or foods with hidden salts such as canned or boxed foods and frozen dinners. Extra salt makes your heart work harder and traps the fluid in your body for longer. Special Instructions: 1. Weightbearing as tolerated on the right lower extremity with walker. 2. Leave dressing intact. Dressing may be changed twice daily as needed until follow up. 3. May shower with initial dressing intact and after removal. 4. If dressing become saturated, please remove. 5. Please take aspirin 325mg twice daily to prevent blood clots, aspirin 325 mg twice daily to be discontinued on October 21, 2023. 6. Recommend use of compression stockings daily until follow up to help prevent swelling and blood clots. May remove at night before sleeping. 7. Please follow-up with [facility] in 2 weeks and call with any questions or concerns, Thank you for allowing us to participate in your care, it was truly a pleasure having you for our patient!!! . Discharge Disposition: TRANSFER TO SNF/ECF
[2023-10-01] MEDS ORDERED: polyethylene glycoL 3350 17 GM POWD.PACK PO SCH (11:30)
== END 2023-10-01 12:11 | DRG 312 ==
LOC: EC 15:24 → 6NMEDSUR 18:50 → OBSVTOIN 09-28 13:33
PROVIDERS: ADMIT Family Medicine; ATTEND Family Medicine
DX: I95.1 Orthostatic hypotension (principal); D62 Acute posthemorrhagic anemia; Z96.641 Presence of right artificial hip joint; R00.0 Tachycardia, unspecified; I10 Essential (primary) hypertension; E78.5 Hyperlipidemia, unspecified; I08.1 Rheumatic disorders of both mitral and tricuspid valves; D72.829 Elevated white blood cell count, unspecified; M16.11 Unilateral primary osteoarthritis, right hip; Z79.82 Long term (current) use of aspirin; Z79.899 Other long term (current) drug therapy; Z96.651 Presence of right artificial knee joint; Z98.51 Tubal ligation status
CPT/HCPCS: 36415; 71046; 71275; 73501; 80048; 80053; 81001; 82728; 83540; 83550; 83735; 83880; 84100; 84484; 85025; 85027; 85379; 85610; 85730; 93005; 93306; 94760; 96360; 96361; 99285